=== PATIENT | female | born 1980 | race African-American/Black ===

== ENCOUNTER 2019-07-01 16:55 | Emergency (ER) | payer MEDICAID ==
--- NOTE | 2019-07-01 18:37 | RAD ---
PORTABLE CHEST ONE VIEW: 07/01/19 at 6:14 p.m. HISTORY: Pacemaker evaluation. FINDINGS: Comparison made with exam of 12/28/18. Left sided pacemaker device remains in place with an intact solitary lead with tip in the right ventr icle. The heart is enlarged. The lungs are well expanded without lobar consolidation, pneumothoraces, marcos pulmonary edema or pleural effusions. IMPRESSION: No acute process. POS: BEATRICE
[2019-07-01 19:18] LABS: #Basophils 0.1 thou/uL (0.0-0.2); #Eosinphils 0.1 thou/uL (0.0-0.7); #Lymphocytes 2.8 thou/uL (1.20-3.40); #Monocytes 0.8 thou/uL (0.11-0.59); %Eosinophils 1.5 % (0.0-10.0); %Lymphocytes 35.6 % (21.0-51.0); %Monocytes 10.4 % (0.0-10.0); %Neutrophils 51.6 % (42.0-75.0); Hemoglobin 11.3 g/dL (12.0-16.0); Mean Corpuscular HGB CONC 33.7 g/dL (32.0-36.0); Mean Corpuscular Hemoglobin 29.3 pg (27.0-31.0); Mean Corpuscular Volume 86.9 fL (78.0-98.0); Mean Platelet Volume 8.4 fL (7.4-10.4); Platelet Count 237 thou/uL (130-400); RBC Distribution Width 11.9 % (11.5-14.5); Red Blood Cell (RBC) Count 3.86 mill/uL (4.20-5.40); White Blood Cell (WBC) Count 7.8 thou/uL (4.8-10.8)
[2019-07-01 19:38] LABS: ALT (SGPT) 8 U/L (8-55); AST (SGOT) 9 U/L (5-34); Alkaline Phosphatase 88 U/L (40-150); Anion Gap 11 mmol/L (10-20); BUN (Urea Nitrogen) 12 mg/dL (7.0-18.7); Bilirubin, Total 0.4 mg/dL (0.2-1.2); CK (CPK) 90 U/L (29-168); Calc. Creatinine Clearance 0 mL/min (70-130); Calcium 8.9 mg/dL (7.8-10.44); Carbon Dioxide 25 mmol/L (22-29); Estimated GFR-MDRD 90; Globulin 3.3 g/dL (2.4-3.5); Glucose 79 mg/dL (70-105); Lipase 22 U/L (8-78); Protein, Total 7.3 g/dL (6.0-8.3)
[2019-07-01 19:40] LABS: Chloride 106 mmol/L (98-107); Potassium 3.1 mmol/L (3.5-5.1); Sodium 139 mmol/L (136-145)
[2019-07-01 19:41] LABS: BHCG - Serum Negative (NEGATIVE); Pregs Control Background? CLEAR/WHITE (CLR/WHITE); Pregs Control Bar Appear? YES (CONTROL BAR)
[2019-07-01] MEDS ORDERED: Potassium Chloride 20 MEQ TAB ONE (19:47)
== END 2019-07-01 21:57 | disposition short-term general hospital (02) ==
LOC: ERS 16:55
DX: T82.118A Breakdown (mechanical) of other cardiac electronic device, initial encounter (principal); E11.9 Type 2 diabetes mellitus without complications; I50.9 Heart failure, unspecified; Z79.4 Long term (current) use of insulin; Z79.899 Other long term (current) drug therapy
CPT/HCPCS: 36415; 71045; 80053; 82550; 83690; 83880; 84484; 84703; 85025; 93005

== ENCOUNTER 2020-04-28 16:52 | Inpatient (IN) | payer MEDICARE, OTHER ==
[~2020-04-28 16:52] MED LIST: Iopamidol-370 76% 500 ML 1 ML ONE
[2020-04-28 17:50] LABS: #Lymphocytes 1.6 thou/uL (1.20-3.40); #Monocytes 0.8 thou/uL (0.11-0.59); #Neutrophils 4.7 thou/uL (1.40-6.50); %Basophils 0.6 % (0.0-1.0); %Eosinophils 0.4 % (0.0-10.0); %Lymphocytes 22.1 % (21.0-51.0); %Monocytes 10.6 % (0.0-10.0); %Neutrophils 66.4 % (42.0-75.0); Hemoglobin 8.9 g/dL (12.0-16.0); Mean Corpuscular HGB CONC 29.1 g/dL (32.0-36.0); Mean Corpuscular Hemoglobin 20.5 pg (27.0-31.0); Mean Corpuscular Volume 70.5 fL (78.0-98.0); Mean Platelet Volume 10.3 fL (7.4-10.4); Platelet Count 293 thou/uL (130-400); RBC Distribution Width 18.4 % (11.5-14.5); Red Blood Cell (RBC) Count 4.35 mill/uL (4.20-5.40); White Blood Cell (WBC) Count 7.1 thou/uL (4.8-10.8)
[2020-04-28 18:07] LABS: Anisocytosis SLIGHT = 6-15 cells (100X) (0-5/hpf); MDiff Complete? YES; Ovalocytes SLIGHT = 2-5 cells (100X) (0-1/hpf); Poikilocytosis SLIGHT = 6-15 cells (100X) (0-5/hpf); Tear Drops SLIGHT = 2-5 cells (100X) (0-1/hpf)
[2020-04-28 18:09] LABS: ALT (SGPT) 23 U/L (8-55); AST (SGOT) 34 U/L (5-34); Albumin 3.3 g/dL (3.5-5.0); Alkaline Phosphatase 131 U/L (40-110); Anion Gap 15 mmol/L (10-20); BUN (Urea Nitrogen) 8 mg/dL (7.0-18.7); Bilirubin, Total 2.1 mg/dL (0.2-1.2); Calc. Creatinine Clearance 0 mL/min (70-130); Calcium 7.6 mg/dL (7.8-10.44); Carbon Dioxide 36 mmol/L (22-29); Chloride 97 mmol/L (98-107); Estimated GFR-MDRD 90; Globulin 3.4 g/dL (2.4-3.5); Glucose 93 mg/dL (70-105); Protein, Total 6.7 g/dL (6.0-8.3); Sodium 145 mmol/L (136-145)
[2020-04-28 18:13] LABS: BHCG - Serum Negative (NEGATIVE); Pregs Control Background? CLEAR/WHITE (CLR/WHITE); Pregs Control Bar Appear? YES (CONTROL BAR)
[2020-04-28 18:23] LABS: Potassium 2.8 mmol/L (3.5-5.1)
[2020-04-28 18:32] LABS: CKMB 1.4 ng/mL (0-6.6)
[2020-04-28] MEDS ORDERED: Furosemide 100 MG/10 ML VIAL ONE (18:32)
[2020-04-28] MEDS ORDERED: Potassium Chloride 20 MEQ TAB ONE (18:32)
--- NOTE | 2020-04-28 18:44 | CT ---
CT Brain WO Con: 04/28/2020 5:20 PM CLINICAL HISTORY: Found unresponsive; syncope. IMAGING TECHNIQUE: Multiple CT images were obtained of the brain without IV contrast. COMPARISON: CT the brain dated June 05, 2016 FINDINGS: BRAIN: Evidence of acute infarct: None. Evidence of chronic ischemic change:None. Evidence of intracranial hemorrhage: None. Evidence of midline shift: Third ventricle and septum pellucidum are midline. Ventricles: Normal. No hydrocephalus. SKULL: Intact. VISUALIZED PARANASAL SINUSES: Clear. MASTOID AIR CELLS: Clear. EXTRACRANIAL SOFT TISSUES: There is an enlarging suspected sebaceous cyst overlying the midline post erior occiput measuring 2.1 cm. IMPRESSION: No acute intracranial abnormality. Enlarging suspected sebaceous cyst of the occipital scalp
--- NOTE | 2020-04-28 19:54 | CT ---
CTA CHEST: Technique: Axial tomograms were obtained following a pulmonary angio protocol with multiplanar recons truction and 3D post processing. Indications: Tachycardia. Shortness of breath. FINDINGS: Pulmonary arteries show adequate enhancement. There is no evidence of pulmonary embolus. There is a moderate sized pericardial effusion. There is also cardiomegaly and vascular congestion. M ild interstitial congestion. No focal infiltrate or alveolar process. No effusion. No evidence of mediastinal adenopathy. Images through the upper abdomen shows small volume ascites around the liver and spleen. IMPRESSION: 1. Moderate sized pericardial effusion. Recommend cardiology consultation. 2. No evidence of pulmonary embolus. 3. Cardiomegaly with vascular congestion. 4. Small volume ascites noted in the upper abdomen. POS: AGW
[2020-04-28] MEDS ORDERED: Ondansetron PF 4 MG/2 ML Vial IVP PRN (20:13)
[2020-04-28] MEDS ORDERED: Promethazine HCl 12.5 MG in Sodium Chloride 0.9% 50 ML IVPB PRN (20:13)
[2020-04-28] MEDS ORDERED: Labetalol HCl 100 MG/20 ML VIAL SLOW IVP PRN (20:13)
[2020-04-28] MEDS ORDERED: Acetaminophen 325 MG TAB PO PRN (20:13)
[2020-04-28] MEDS ORDERED: Morphine 2 MG/ML SYRINGE SLOW IVP PRN (20:13)
[2020-04-28] MEDS ORDERED: Guaifenesin DM 100-10/5 ML UDCUP PO PRN (20:13)
[2020-04-28] MEDS ORDERED: cloNIDine 0.1 MG TAB PO PRN (20:13)
[2020-04-28] MEDS ORDERED: hydrALAZINE 20 MG/ML VIAL SLOW IVP PRN (20:13)
--- NOTE | 2020-04-28 21:33 | PDOC.HHP ---
Hospitalist HPI - History of Present Illness Syncope History of Present Illness: Patient is a 39 year old female with PMH VF arrest, CHF, anoxic brain injury who presents to ED after syncope today, she fainted upon rising from toilet, was unresponsive for a few minutes. She has CHF and a pacemaker, sees Dr Rinaldi. history of VF arrest as well as seizure. Reports dizziness x 1 week. In ED, K 2.8, given IV and PO replacement, hgb 8.9 which is close to chronic hgb. BNP 1500, TnI 0.22, CTA chest w/ moderate pericardial effusion, volume overload. Brain CT unremarkable. patient given ASA and to be admitted for further workup. She has history of anoxic brain injury and is poor historian. Hospitalist ROS - Review of Systems Constitutional: denies: fever, chills, sweats, weakness, malaise, other Eyes: denies: pain, vision change, conjunctivae inflammation, eyelid inflammation, redness, other ENT: denies: ear pain, ear discharge, nose pain, nose discharge, nose congestion , mouth pain, mouth swelling, throat pain, throat swelling, other Respiratory: denies: cough, dry, shortness of breath, hemoptysis, SOB with excertion, pleuritic pain, sputum, wheezing, other Cardiovascular: denies: chest pain, palpitations, orthopnea, paroxysmal noc. dyspnea, edema, light headedness, other Gastrointestinal: denies: nausea, vomiting, abdominal pain, diarrhea, constipation, melena, hematochezia, other Genitourinary: denies: dysuria, frequency, incontinence, hematuria, retention, other Musculoskeletal: denies: neck pain, shoulder pain, arm pain, back pain, hand pain, leg pain, foot pain, other Skin: denies: rash, lesions, silvestre, bruising, other Neurological: denies: weakness, numbness, incoordination, change in speech, confusion, seizures, other All other systems reviewed; all pertinent +/- noted in HPI/Subj - Medication Medications: lisinopril WedApr 28, 2020 17:05 BERNA Abbasi Shelley TABLET : Strength - 10 mg : ORAL Patient Dose: 1 tab(s) Oral once a day. carvedilol WedApr 28, 2020 17:05 BERNA Abbasi Shelley TABLET : Strength - 25 mg : ORAL Patient Dose: 6.25 mg Oral 2 times a day. sertraline WedApr 28, 2020 17:05 BERNA Abbasi Shelley TABLET : Strength - 25 mg : ORAL Patient Dose: 1 tab(s) Oral once a day. Lasix oral WedApr 28, 2020 17:06 BERNA Abbasi Shelley tablet : Strength - 20 mg : ORAL Patient Dose: 40 mg Oral 2 times a day. Hospitalist History - Past Medical History Other Medical History: chronic systolic CHF pacemaker VF arrest - Past Surgical History Other Surgical History: cholecystectomy C section - Family History Other Family History: CAD, DM - Social History Smoking Status: Never smoker Alcohol: reports: None Drugs: reports: none - Exam General Appearance: NAD, awake alert Eye: PERRL, anicteric sclera ENT: normocephalic atraumatic, no oropharyngeal lesions, moist mucosa Neck: supple, symmetric, no JVD, no thyromegaly, no lymphadenopathy, no carotid bruit Heart: RRR, no murmur, no gallops, no rubs, normal peripheral pulses Respiratory: CTAB, no wheezes, no rales, no ronchi, normal chest expansion, no tachypnea, normal percussion Gastrointestinal: soft, non-tender, non-distended, normal bowel sounds, no palpable masses, no hepatomegaly, no splenomegaly, no bruit Extremities: no cyanosis, no clubbing, no edema Skin: normal turgor, no lesions, no rashes Neurological: cranial nerve grossly intact, normal sensation to touch, no weakness, no focal deficits, no new deficit Musculoskeletal: normal tone, normal strength, no muscle wasting Psychiatric: normal affect, normal behavior, A&O x 3 Hospitalist Results - Labs Result Diagrams: 04/28/20 17:39 04/28/20 17:39 Lab results: WBC 7.1 thou/uL (4.8-10.8) 04/28/20 17:39 Hgb 8.9 g/dL (12.0-16.0) L 04/28/20 17:39 Hct 30.7 % (36.0-47.0) L 04/28/20 17:39 MCV 70.5 fL (78.0-98.0) L 04/28/20 17:39 Plt Count 293 thou/uL (130-400) 04/28/20 17:39 Neutrophils % 66.4 % (42.0-75.0) 04/28/20 17:39 Sodium 145 mmol/L (136-145) 04/28/20 17:39 Potassium 2.8 mmol/L (3.5-5.1) L* 04/28/20 17:39 Chloride 97 mmol/L (98-107) L 04/28/20 17:39 Carbon Dioxide 36 mmol/L (22-29) H 04/28/20 17:39 BUN 8 mg/dL (7.0-18.7) 04/28/20 17:39 Creatinine 0.85 mg/dL (0.6-1.1) 04/28/20 17:39 Glucose 93 mg/dL (70-105) 04/28/20 17:39 Calcium 7.6 mg/dL (7.8-10.44) L 04/28/20 17:39 Total Bilirubin 2.1 mg/dL (0.2-1.2) H 04/28/20 17:39 AST 34 U/L (5-34) 04/28/20 17:39 ALT 23 U/L (8-55) 04/28/20 17:39 Alkaline Phosphatase 131 U/L (40-110) H 04/28/20 17:39 CK-MB (CK-2) 1.4 ng/mL (0-6.6) 04/28/20 17:39 Troponin I 0.210 ng/mL (< 0.028) H 04/28/20 20:24 B-Natriuretic Peptide 1522.1 pg/mL (0-100) H 04/28/20 17:39 Serum Total Protein 6.7 g/dL (6.0-8.3) 04/28/20 17:39 Albumin 3.3 g/dL (3.5-5.0) L 04/28/20 17:39 - EKG Interpretation EKG: sinus, 98 BPM, IL 160, QTc 492 Hospitalist H&P A/P - Plan Plan: Patient is a 39 year old female with PMH VF arrest, CHF, anoxic brain injury who presents to ED after syncope today. # syncope # hypokalemia # prolonged QT # chronic systolic CHF # elevated troponin # history of VF arrest - given presenation of history of arrythmia, hypokalemia, syncope and lack of seizure-like movements, cardiac source of syncope most likely, patient with elevated troponin and very low K despite replacement at outside hospital and prolonged QT - admit to telemetry - replete K and Mg now empirically - trend BMP, Mg - consult Dr Rinaldi - trend troponin, continue ASA empiric # history of seizure - not consistent with seizure given troponin, electrolytes , description of events, however will monitor for anything that looks like seizure activity, continue home seizure meds once med rec complete # DM 2 - SSI # radiographic finding of pericardial effusion - presentation not consistent with tamponade, consult cardiology in AM # anemia - chronic, trend CBC, no clinical bleeding # DVT, GI ppx
[2020-04-28] MEDS ORDERED: Magnesium 2 GM/50 ML 2 GM in Premix Bag 1 BAG IVPB SCH (22:00)
[2020-04-28] MEDS ORDERED: levETIRAcetam 500 mg/5 ml Oral Solution PO SCH (22:00)
[2020-04-28 23:58] VITALS: BMI 49.4
[2020-04-29] MEDS: Famotidine 20 MG TAB PO SCH ×3 (00:47→20:57)
[2020-04-29 06:23] LABS: Anion Gap 16 mmol/L (10-20); BUN (Urea Nitrogen) 8 mg/dL (7.0-18.7); Calc. Creatinine Clearance 186 mL/min (70-130); Calcium 7.4 mg/dL (7.8-10.44); Carbon Dioxide 32 mmol/L (22-29); Chloride 97 mmol/L (98-107); Estimated GFR-MDRD 86; Glucose 117 mg/dL (70-105); Magnesium 1.4 mg/dL (1.6-2.6); Sodium 142 mmol/L (136-145)
[2020-04-29 06:26] LABS: Potassium 2.6 mmol/L (3.5-5.1); Troponin I 0.197 ng/mL (< 0.028)
[2020-04-29 06:36] LABS: #Eosinphils 0.1 thou/uL (0.0-0.7); #Lymphocytes 2.4 thou/uL (1.20-3.40); #Monocytes 0.9 thou/uL (0.11-0.59); #Neutrophils 3.1 thou/uL (1.40-6.50); %Basophils 0.7 % (0.0-1.0); %Eosinophils 1.8 % (0.0-10.0); %Lymphocytes 36.1 % (21.0-51.0); %Monocytes 14.2 % (0.0-10.0); %Neutrophils 47.2 % (42.0-75.0); Hemoglobin 8.3 g/dL (12.0-16.0); Mean Corpuscular Hemoglobin 20.2 pg (27.0-31.0); Mean Corpuscular Volume 69.8 fL (78.0-98.0); Mean Platelet Volume 10.9 fL (7.4-10.4); Platelet Count 274 thou/uL (130-400); RBC Distribution Width 18.5 % (11.5-14.5); Red Blood Cell (RBC) Count 4.13 mill/uL (4.20-5.40); White Blood Cell (WBC) Count 6.6 thou/uL (4.8-10.8)
[2020-04-29] MEDS ORDERED: NS 0.9% w/ 40 MEQ KCL 1,000 ML IV SCH (06:45)
[2020-04-29] MEDS ORDERED: Potassium Chloride 40 MEQ in Premix Bag 1 BAG IVPB SCH (08:30)
[2020-04-29] MEDS: Lisinopril 2.5 MG TAB PO SCH (09:40)
[2020-04-29] MEDS: levETIRAcetam 500 mg/5 ml Oral Solution PO SCH ×2 (09:40→20:57)
[2020-04-29] MEDS: Carvedilol 3.125 MG TAB PO SCH ×2 (09:40→17:40)
[2020-04-29] MEDS: Enoxaparin Sodium 40 MG/0.4 ML SYRINGE SC SCH (09:42)
[2020-04-29] MEDS: Aspirin 81 mg Enteric Coated Tablet PO SCH (09:42)
[2020-04-29] MEDS: Magnesium Sulfate 4 GM in Sodium Chloride 0.9% 250 ML 250 ML IVPB SCH ×2 (09:43→14:42)
[2020-04-29] MEDS: Potassium Chloride 20 MEQ in Premix Bag 1 BAG IVPB SCH ×2 (09:43→17:41)
[2020-04-29] MEDS: Polyethylene Glycol 3350 17 GM Packet PO SCH (09:44)
[2020-04-29 12:20] LABS: Troponin I 0.171 ng/mL (< 0.028)
[2020-04-29] MEDS ORDERED: Potassium Chloride 20 MEQ TAB PO SCH (13:30)
--- NOTE | 2020-04-29 13:53 | CON ---
DATE OF CONSULTATION: 04/29/2020 REASON FOR CONSULTATION: Syncope. PRIMARY INSPECTOR COLD WORKING: Abimael Rinaldi MD HISTORY OF PRESENT ILLNESS: Ms. Gómez is a very pleasant 39-year-old female, who comes to the hospital for syncopal spell. She states she was at the bathroom, and when she was about to stand up as she was done, she had a syncopal spell, just remembers standing up and then waking up on the floor. She was brought in. She was found to have low potassium, otherwise no other issues. So, Cardiology is being consulted for further evaluation and care. Ms. Gómez does have a history of VFib arrest that she has a cardiomyopathy, dilated cardiomyopathy in 2016. She had a VFib arrest from this and had an AICD placed. She has followed up since then and has been fairly moderate with her followup, missing probably half of them. She does take her medications. Every time when she has been asked about this, she states she is continuously on them. PAST MEDICAL HISTORY: 1. Nonischemic cardiomyopathy with cardiomyopathy. 2. Status post VFib arrest in 2016 with some level of anoxic brain injury. 3. AICD in place. PAST SURGICAL HISTORY: 1. Cholecystectomy. 2. . 3. AICD placement. OUTPATIENT MEDICATIONS: 1. Lisinopril 5 mg a day. 2. Carvedilol 6.25 b.i.d. 3. Furosemide 40 mg b.i.d. 4. Sertraline 25 mg a day. 5. Keppra. ALLERGIES: PENICILLIN AND LATEX. SOCIAL HISTORY: No alcohol, tobacco, or drugs. FAMILY HISTORY: Noncontributory. REVIEW OF SYSTEMS: A 12-point review of systems was done and was all negative unless stated in the History of Present Illness. PHYSICAL EXAMINATION: VITAL SIGNS: Temperature 97.5, pulse 94, respiratory rate 16, sat is 93% on room air, and blood pressure 120/79. GENERAL: Awake, alert, oriented x3. No distress. HEENT: Normocephalic, atraumatic. NECK: Supple. LUNGS: Clear. CARDIOVASCULAR: S1, S2. No S3 or S4. ABDOMEN: Soft. Positive bowel sounds. EXTREMITIES: 1+ edema. SKIN: Warm and dry. LABORATORY DATA: Laboratory work was reviewed, showed a CBC with white count of 7, hemoglobin of 8.9, hematocrit of 30, platelet count of 293, which is baseline. Sodium 142, potassium was very low at 2.6, BUN of 8, creatinine of 0.88, glucose of 117, calcium is low at 7.4, magnesium was low at 1.4. Troponin was 0.21, 0.19, and 0.17. BNP of 1522. CT of the brain was unremarkable. CT of the thorax showed no evidence of pulmonary embolism. There is a pericardial effusion and small volume ascites in the abdomen. ASSESSMENT: Include: 1. Syncope. 2. Profound hypokalemia, hypomagnesemia. 3. History of ventricular fibrillation arrest. 4. Status post automatic implantable cardioverter-defibrillator. 5. Dilated nonischemic cardiomyopathy. PLAN: 1. Interrogate ICD as high likelihood of arrhythmia given her electrolyte imbalance. 2. We will correct magnesium and then potassium. 3. She will need diuresis. 4. We will repeat echocardiogram to assess her pericardial effusion. Most likely, this is related to acute decompensated heart failure. Thank you for letting us to participate in the care of your patient. We will follow. Job ID: [id number]
--- NOTE | 2020-04-29 23:33 | PDOC.HOSPP ---
- Subjective Encounter Date: 04/29/20 Encounter Time: 12:30 Subjective: Patient seen and examined for Syncope. No new CP or SOB. No new complaints. No overnight events - Objective Vital Signs & Weight: Vital Signs (12 hours) Temp Pulse Resp BP Pulse Ox 04/29/20 17:00 150/94 H 04/29/20 11:55 97.5 F L 94 16 121/79 93 L Weight Weight 306 lb 6.4 oz I&O: 04/28/20 04/29/20 04/30/20 06:59 06:59 06:59 Intake Total 1770 Output Total 450 Balance 1320 Result Diagrams: 04/30/20 04:13 04/30/20 04:13 Additional Labs: Laboratory Tests 04/29/20 05:46 Potassium 2.6 L* Magnesium 1.4 L EKG Reviewed by me: Yes (Tele SR) Hospitalist ROS - Review of Systems Respiratory: denies: cough, dry, shortness of breath, hemoptysis, SOB with excertion, pleuritic pain, sputum, wheezing, other Cardiovascular: reports: paroxysmal noc. dyspnea, edema. denies: chest pain, palpitations, orthopnea, light headedness, other Gastrointestinal: denies: nausea, vomiting, abdominal pain, diarrhea, constipation, melena, hematochezia, other - Medication Medications: Active Medications Generic Name Dose Route Start Last Admin Trade Name Freq PRN Reason Stop Dose Admin Aspirin 81 mg 04/29/20 09:00 04/29/20 09:42 Ecotrin PO 81 mg DAILY [facility] Administration Carvedilol 3.125 mg 04/29/20 08:00 04/29/20 17:40 Coreg PO 3.125 mg BID-WM [facility] Administration Enoxaparin Sodium 40 mg 04/29/20 09:00 04/29/20 09:42 Lovenox SC 40 mg 0900 [facility] Administration Famotidine 20 mg 04/28/20 21:00 04/29/20 20:57 Pepcid PO 20 mg BID [facility] Administration Levetiracetam 1,000 mg 04/29/20 09:00 04/29/20 20:57 Keppra Oral Solution PO 1,000 mg BID [facility] Administration Lisinopril 1.25 mg 04/29/20 09:00 04/29/20 09:40 Zestril PO 1.25 mg DAILY [facility] Administration Polyethylene Glycol 17 gm 04/29/20 09:00 04/29/20 09:44 Miralax PO Not Given DAILY [facility] Sodium Chloride 10 ml 04/29/20 09:00 04/29/20 20:57 Flush - Normal Saline IVF 10 ml Q12HR [facility] Administration - Exam General Appearance: NAD Neck: supple, JVD Heart: RRR, no gallops Respiratory: no wheezes, normal chest expansion, rales, rhonchi Respiratory - other findings: dec AE at bases Gastrointestinal: soft, normal bowel sounds, no guarding, no rigidity Extremities: no cyanosis, no clubbing, 2+ LE edema Neurological: no new deficit Psychiatric: normal affect, A&O x 3 Hosp A/P - Plan DVT proph w/lovenox Acute on chronic systolic CHF/nonischemic CM Syncope - suspected Cardiogenic Severe hypokalemia Hypomagnesemia History of VF arrest seizure disorder DM [address] Chronic anemia prob due to nutrional def Morbid obesity BMI 49.1 Abn LFTs prob due to CHF PLAN: Replace Potassium and Magnesium Cont ACEI Cont Coreg Await Echo Cont Keppra Cardiac rehab AM labs Counselled on CHF
[2020-04-30 05:16] LABS: #Basophils 0.1 thou/uL (0.0-0.2); #Eosinphils 0.2 thou/uL (0.0-0.7); #Lymphocytes 2.2 thou/uL (1.20-3.40); #Neutrophils 4.6 thou/uL (1.40-6.50); %Basophils 0.8 % (0.0-1.0); %Eosinophils 1.9 % (0.0-10.0); %Lymphocytes 27.4 % (21.0-51.0); %Monocytes 12.3 % (0.0-10.0); %Neutrophils 57.6 % (42.0-75.0); Hemoglobin 8.7 g/dL (12.0-16.0); Mean Corpuscular HGB CONC 29.1 g/dL (32.0-36.0); Mean Corpuscular Hemoglobin 20.3 pg (27.0-31.0); Mean Corpuscular Volume 69.9 fL (78.0-98.0); Platelet Count 326 thou/uL (130-400); RBC Distribution Width 18.3 % (11.5-14.5); Red Blood Cell (RBC) Count 4.26 mill/uL (4.20-5.40)
[2020-04-30 05:24] LABS: Phosphorus 2.7 mg/dL (2.3-4.7)
[2020-04-30 05:28] LABS: Anion Gap 16 mmol/L (10-20); BUN (Urea Nitrogen) 10 mg/dL (7.0-18.7); Calc. Creatinine Clearance 161 mL/min (70-130); Calcium 7.8 mg/dL (7.8-10.44); Carbon Dioxide 34 mmol/L (22-29); Chloride 97 mmol/L (98-107); Estimated GFR-MDRD 73; Glucose 110 mg/dL (70-105); Potassium 3.7 mmol/L (3.5-5.1); Sodium 143 mmol/L (136-145)
[2020-04-30] MEDS: Enoxaparin Sodium 40 MG/0.4 ML SYRINGE SC SCH (08:57)
[2020-04-30] MEDS: levETIRAcetam 500 mg/5 ml Oral Solution PO SCH ×2 (08:57→21:25)
[2020-04-30] MEDS: Lisinopril 2.5 MG TAB PO SCH (08:57)
[2020-04-30] MEDS: Aspirin 81 mg Enteric Coated Tablet PO SCH (08:57)
[2020-04-30] MEDS: Carvedilol 3.125 MG TAB PO SCH ×2 (08:57→17:06)
[2020-04-30] MEDS: Polyethylene Glycol 3350 17 GM Packet PO SCH ×2 (08:58→09:10)
[2020-04-30] MEDS: Famotidine 20 MG TAB PO SCH ×2 (11:14→21:24)
[2020-04-30] MEDS ORDERED: Potassium Chloride 20 MEQ TAB PO SCH ×2 (11:30→12:00)
[2020-04-30] MEDS: Potassium Chloride 20 MEQ TAB PO SCH ×2 (12:05→17:06)
[2020-04-30] MEDS ORDERED: Furosemide 20 MG/2 ML VIAL SLOW IVP SCH (14:00)
--- NOTE | 2020-04-30 16:22 | PDOC.CPN ---
- Subjective Date: 04/30/20 Time: 16:20 Interval history: She is doing better. No more syncope. No lightheadedness. - Review of Systems General: denies: fever/chills, weight/appetite/sleep changes, night sweats, fatigue Respiratory: denies: cough, congestion, shortness of breath, exercise intolerance Cardiovascular: reports: edema. denies: chest pain, palpitation, paroxysmal nocturnal dyspnea, orthopnea Gastrointestinal: denies: nausea, vomiting, diarrhea, constipation, abd pain, GI bleeding Musculoskeletal: denies: pain, tenderness, stiffness, swelling, arthritis/ arthralgias - Objective Allergies/Adverse Reactions: Allergies Allergy/AdvReac Type Severity Reaction Status Date / Time latex Allergy Verified 04/28/20 22:48 Penicillins Allergy Verified 04/28/20 22:48 Visit Medications: Current Medications Acetaminophen (Tylenol) 650 mg PO Q4H PRN PRN Reason: Headache/Fever/Mild Pain (1-3) Albuterol/Ipratropium (Duoneb) 3 ml NEB [id number] PRN PRN Reason: SOB &/or Wheezing Aspirin (Ecotrin) 81 mg PO DAILY [facility] Last Admin: 04/30/20 08:57 Dose: 81 mg Carvedilol (Coreg) 3.125 mg PO BID-[facility] Last Admin: 04/30/20 08:57 Dose: 3.125 mg Clonidine (Catapres) 0.1 mg PO BID PRN PRN Reason: SBP > 160 use second Enoxaparin Sodium (Lovenox) 40 mg SC 0900 [facility] Last Admin: 04/30/20 08:57 Dose: 40 mg Famotidine (Pepcid) 20 mg PO BID [facility] Last Admin: 04/30/20 11:14 Dose: 20 mg Furosemide (Lasix) 20 mg SLOW IVP 0600,1400 [facility] Last Admin: 04/30/20 12:04 Dose: 20 mg Guaifenesin/Dextromethorphan (Robitussin Dm) 15 ml PO Q4H PRN PRN Reason: Cough Hydralazine HCl (Apresoline) 10 mg SLOW IVP Q6H PRN PRN Reason: SBP GREATER THAN 160 Promethazine HCl 12.5 mg/ (Sodium Chloride) 50.5 mls @ 202 mls/hr IVPB Q6H PRN PRN Reason: Nausea/vomiting use second Labetalol HCl (Normodyne) 20 mg SLOW IVP Q4H PRN PRN Reason: SBP > 160 use third Levetiracetam (Keppra Oral Solution) 1,000 mg PO BID [facility] Last Admin: 04/30/20 08:57 Dose: 1,000 mg Lisinopril (Zestril) 1.25 mg PO DAILY [facility] Last Admin: 04/30/20 08:57 Dose: 1.25 mg Morphine Sulfate (Morphine) 2 mg SLOW IVP Q4H PRN PRN Reason: severe pain 4-10 Ondansetron HCl (Zofran) 4 mg IVP Q6H PRN PRN Reason: Nausea/Vomiting use 1st Polyethylene Glycol (Miralax) 17 gm PO DAILY [facility] Last Admin: 04/30/20 09:10 Dose: Not Given Potassium Chloride (K-Dur) 40 meq PO TID-[facility] Last Admin: 04/30/20 12:05 Dose: Not Given Sodium Chloride (Flush - Normal Saline) 10 ml IVF Q12HR [facility] Last Admin: 04/30/20 08:58 Dose: 10 ml Sodium Chloride (Flush - Normal Saline) 10 ml IVF PRN PRN PRN Reason: Saline Flush Vital Signs & Weight: Vital Signs Temp Pulse Resp BP Pulse Ox 04/30/20 15:31 97.5 F L 93 15 125/75 92 L 04/30/20 11:07 99.6 F 107 H 22 H 155/109 H 94 L 04/30/20 08:57 118 H 04/30/20 08:36 94 L 04/30/20 06:58 98.1 F 118 H 10 L 164/109 H 94 L Weight 304 lb - Physical Exam General: alert & oriented x3 HEENT: mucus membranes moist Neck: supple neck Cardiac: regular rate and rhythm Lungs: normal breath sounds Neuro: grossly intact Abdomen: active bowel sounds Extremities: 2+ LE edema Skin: clear Musculoskeletal: no pain - Labs Result Diagrams: 04/30/20 04:13 04/30/20 04:13 Troponin/CKMB CK-MB (CK-2) 1.4 ng/mL (0-6.6) 04/28/20 17:39 Troponin I 0.171 ng/mL (< 0.028) H 04/29/20 11:35 - Telemetry Sinus rhythms and dysrhythmias: sinus rhythm - Assessment/Plan Assessment/Plan: 1. Syncope, likely orthostatic 2. Acute on chronic systolic heart failure 3. Non ischemic CM EF at 20-25% 4. Presence of an AICD. PLAN: - Continue IV diuresis. - No arrhytmias seen on interrogation of device. a lot of non sustained VCT 1 or 2 seconds worth, nothing that wopuld explain syncope. - He has elevated optivol pressure on device. Needs diuresis for 2 or 3 days. - Will follow.
[2020-05-01 04:59] LABS: #Eosinphils 0.1 thou/uL (0.0-0.7); #Lymphocytes 2.7 thou/uL (1.20-3.40); #Monocytes 1.1 thou/uL (0.11-0.59); #Neutrophils 5.1 thou/uL (1.40-6.50); %Basophils 0.4 % (0.0-1.0); %Eosinophils 1.4 % (0.0-10.0); %Lymphocytes 29.7 % (21.0-51.0); %Neutrophils 56.5 % (42.0-75.0); Hemoglobin 8.7 g/dL (12.0-16.0); Mean Corpuscular Hemoglobin 20.5 pg (27.0-31.0); Mean Corpuscular Volume 70.7 fL (78.0-98.0); Mean Platelet Volume 10.6 fL (7.4-10.4); Platelet Count 343 thou/uL (130-400); RBC Distribution Width 18.6 % (11.5-14.5); Red Blood Cell (RBC) Count 4.23 mill/uL (4.20-5.40); White Blood Cell (WBC) Count 9.1 thou/uL (4.8-10.8)
[2020-05-01 05:14] LABS: ALT (SGPT) 25 U/L (8-55); AST (SGOT) 31 U/L (5-34); Albumin 3.7 g/dL (3.5-5.0); Alkaline Phosphatase 150 U/L (40-110); Anion Gap 16 mmol/L (10-20); BUN (Urea Nitrogen) 16 mg/dL (7.0-18.7); Bilirubin, Total 3.3 mg/dL (0.2-1.2); Calc. Creatinine Clearance 135 mL/min (70-130); Calcium 8.1 mg/dL (7.8-10.44); Carbon Dioxide 30 mmol/L (22-29); Chloride 98 mmol/L (98-107); Estimated GFR-MDRD 60; Globulin 3.6 g/dL (2.4-3.5); Glucose 116 mg/dL (70-105); Magnesium 1.7 mg/dL (1.6-2.6); Potassium 4.2 mmol/L (3.5-5.1); Protein, Total 7.3 g/dL (6.0-8.3); Sodium 140 mmol/L (136-145)
[2020-05-01] MEDS ORDERED: Furosemide 40 MG/4 ML VIAL SLOW IVP SCH (06:00)
[2020-05-01] MEDS: Lisinopril 2.5 MG TAB PO SCH (09:08)
[2020-05-01] MEDS: Potassium Chloride 20 MEQ TAB PO SCH ×2 (09:08→16:37)
[2020-05-01] MEDS: Famotidine 20 MG TAB PO SCH ×2 (09:09→21:09)
[2020-05-01] MEDS: Enoxaparin Sodium 40 MG/0.4 ML SYRINGE SC SCH (09:09)
[2020-05-01] MEDS: Carvedilol 3.125 MG TAB PO SCH ×2 (09:09→16:38)
[2020-05-01] MEDS: Aspirin 81 mg Enteric Coated Tablet PO SCH (09:09)
[2020-05-01] MEDS: levETIRAcetam 500 mg/5 ml Oral Solution PO SCH ×2 (09:09→21:10)
[2020-05-01] MEDS: Polyethylene Glycol 3350 17 GM Packet PO SCH (09:11)
[2020-05-01] MEDS ORDERED: Magnesium Sulfate 4 GM in Sodium Chloride 0.9% 250 ML 250 ML IVPB SCH (09:30)
--- NOTE | 2020-05-01 12:34 | PDOC.CPN ---
- Subjective Date: 05/01/20 Time: 12:34 Interval history: Doing better. No angina. no syncope. - Review of Systems General: denies: fever/chills, weight/appetite/sleep changes, night sweats, fatigue Respiratory: denies: cough, congestion, shortness of breath, exercise intolerance Cardiovascular: denies: chest pain, palpitation, edema, paroxysmal nocturnal dyspnea, orthopnea Gastrointestinal: denies: nausea, vomiting, diarrhea, constipation, abd pain, GI bleeding Musculoskeletal: denies: pain, tenderness, stiffness, swelling, arthritis/ arthralgias Neurological: denies: numbness, syncope, seizure, weakness - Objective Allergies/Adverse Reactions: Allergies Allergy/AdvReac Type Severity Reaction Status Date / Time latex Allergy Verified 04/28/20 22:48 Penicillins Allergy Verified 04/28/20 22:48 Visit Medications: Current Medications Acetaminophen (Tylenol) 650 mg PO Q4H PRN PRN Reason: Headache/Fever/Mild Pain (1-3) Albuterol/Ipratropium (Duoneb) 3 ml NEB [id number] PRN PRN Reason: SOB &/or Wheezing Aspirin (Ecotrin) 81 mg PO DAILY [facility] Last Admin: 05/01/20 09:09 Dose: 81 mg Carvedilol (Coreg) 3.125 mg PO BID-[facility] Last Admin: 05/01/20 09:09 Dose: 3.125 mg Clonidine (Catapres) 0.1 mg PO BID PRN PRN Reason: SBP > 160 use second Enoxaparin Sodium (Lovenox) 40 mg SC 0900 [facility] Last Admin: 05/01/20 09:09 Dose: 40 mg Famotidine (Pepcid) 20 mg PO BID [facility] Last Admin: 05/01/20 09:09 Dose: 20 mg Furosemide (Lasix) 40 mg PO 0900,1400 [facility] Guaifenesin/Dextromethorphan (Robitussin Dm) 15 ml PO Q4H PRN PRN Reason: Cough Hydralazine HCl (Apresoline) 10 mg SLOW IVP Q6H PRN PRN Reason: SBP GREATER THAN 160 Promethazine HCl 12.5 mg/ (Sodium Chloride) 50.5 mls @ 202 mls/hr IVPB Q6H PRN PRN Reason: Nausea/vomiting use second Labetalol HCl (Normodyne) 20 mg SLOW IVP Q4H PRN PRN Reason: SBP > 160 use third Levetiracetam (Keppra Oral Solution) 1,000 mg PO BID [facility] Last Admin: 05/01/20 09:09 Dose: 1,000 mg Lisinopril (Zestril) 1.25 mg PO DAILY [facility] Last Admin: 05/01/20 09:08 Dose: 1.25 mg Morphine Sulfate (Morphine) 2 mg SLOW IVP Q4H PRN PRN Reason: severe pain 4-10 Ondansetron HCl (Zofran) 4 mg IVP Q6H PRN PRN Reason: Nausea/Vomiting use 1st Polyethylene Glycol (Miralax) 17 gm PO DAILY [facility] Last Admin: 05/01/20 09:11 Dose: Not Given Potassium Chloride (K-Dur) 40 meq PO BID-[facility] Sodium Chloride (Flush - Normal Saline) 10 ml IVF Q12HR [facility] Last Admin: 05/01/20 09:10 Dose: 10 ml Sodium Chloride (Flush - Normal Saline) 10 ml IVF PRN PRN PRN Reason: Saline Flush Vital Signs & Weight: Vital Signs Temp Pulse Pulse Pulse Resp BP BP 05/01/20 12:02 98.2 F 97 18 135/89 05/01/20 09:20 118 H 119 H 144/75 H 05/01/20 07:42 05/01/20 07:23 97.7 F 108 H 18 135/104 H 05/01/20 04:00 99.2 F 114 H 18 158/74 H Pulse Ox Pulse Ox 05/01/20 12:02 96 05/01/20 09:20 94 L 05/01/20 07:42 96 05/01/20 07:23 97 05/01/20 04:00 96 Weight 306 lb 12.8 oz - Physical Exam General: alert & oriented x3 HEENT: mucus membranes moist Neck: supple neck Cardiac: regular rate and rhythm Lungs: normal breath sounds Neuro: grossly intact Abdomen: active bowel sounds Extremities: no edema Skin: clear Musculoskeletal: no pain - Labs Result Diagrams: 05/01/20 04:09 05/01/20 04:09 Troponin/CKMB CK-MB (CK-2) 1.4 ng/mL (0-6.6) 04/28/20 17:39 Troponin I 0.171 ng/mL (< 0.028) H 04/29/20 11:35 - Telemetry Sinus rhythms and dysrhythmias: sinus rhythm - Assessment/Plan Assessment/Plan: 1. Syncope, likely orthostatic 2. Acute on chronic systolic heart failure 3. Non ischemic CM EF at 20-25% 4. Presence of an AICD. PLAN: - Switch to PO diuresis. - Continue other meds. - Cannot tolerate many CHF meds due to orthostatic hypotension and borderline low BP. - May discharge home from cardiac perspective at any time.
--- NOTE | 2020-05-01 13:00 | PDOC.HOSPP ---
- Subjective Encounter Date: 04/30/20 Encounter Time: 15:00 Subjective: Patient seen and examined for CHF/Syncope. SOB on mild exertion. No new complaints. No overnight events - Objective Vital Signs & Weight: Vital Signs (12 hours) Temp Pulse Pulse Pulse Resp BP BP 05/01/20 12:02 98.2 F 97 18 135/89 05/01/20 09:20 118 H 119 H 144/75 H 05/01/20 07:42 05/01/20 07:23 97.7 F 108 H 18 135/104 H 05/01/20 04:00 99.2 F 114 H 18 158/74 H Pulse Ox Pulse Ox 05/01/20 12:02 96 05/01/20 09:20 94 L 05/01/20 07:42 96 05/01/20 07:23 97 05/01/20 04:00 96 Weight Weight 306 lb 12.8 oz I&O: 04/30/20 05/01/20 05/02/20 06:59 06:59 06:59 Intake Total 1970 1480 Output Total 1000 Balance 970 1480 Result Diagrams: 05/01/20 04:09 05/01/20 04:09 EKG Reviewed by me: Yes (Tele ST) Hospitalist ROS - Review of Systems Respiratory: reports: SOB with excertion. denies: cough, dry, shortness of breath, hemoptysis, pleuritic pain, sputum, wheezing, other Cardiovascular: denies: chest pain, palpitations, orthopnea, paroxysmal noc. dyspnea, edema, light headedness, other Gastrointestinal: denies: nausea, vomiting, abdominal pain, diarrhea, constipation, melena, hematochezia, other - Medication Medications: Active Medications Generic Name Dose Route Start Last Admin Trade Name Freq PRN Reason Stop Dose Admin Aspirin 81 mg 04/29/20 09:00 05/01/20 09:09 Ecotrin PO 81 mg DAILY EFREM Administration Carvedilol 3.125 mg 04/29/20 08:00 05/01/20 09:09 Coreg PO 3.125 mg BID-WM EFREM Administration Enoxaparin Sodium 40 mg 04/29/20 09:00 05/01/20 09:09 Lovenox SC 40 mg 0900 EFREM Administration Famotidine 20 mg 04/28/20 21:00 05/01/20 09:09 Pepcid PO 20 mg BID EFREM Administration Levetiracetam 1,000 mg 04/29/20 09:00 05/01/20 09:09 Keppra Oral Solution PO 1,000 mg BID EFREM Administration Lisinopril 1.25 mg 04/29/20 09:00 05/01/20 09:08 Zestril PO 1.25 mg DAILY EFREM Administration Polyethylene Glycol 17 gm 04/29/20 09:00 05/01/20 09:11 Miralax PO Not Given DAILY EFREM Sodium Chloride 10 ml 04/29/20 09:00 05/01/20 09:10 Flush - Normal Saline IVF 10 ml Q12HR EFREM Administration - Exam General Appearance: NAD Heart: RRR, no gallops Respiratory: no rales, no ronchi Gastrointestinal: soft, non-tender, normal bowel sounds Extremities: 2+ LE edema Hosp A/P - Plan DVT proph w/SCDs Acute on chronic systolic CHF/nonischemic CM Syncope - suspected Cardiogenic Severe hypokalemia Hypomagnesemia History of VF arrest seizure disorder DM [address] Chronic anemia prob due to nutrional def Morbid obesity BMI 49.1 Abn LFTs prob due to CHF PLAN: IV Lasix Cont ACEI Cont Coreg Echo pending Cont Keppra Cardiac rehab AM labs including LFTs Counselled on CHF
[2020-05-01] MEDS: Furosemide 40 MG TAB PO SCH (13:55)
--- NOTE | 2020-05-01 22:18 | PDOC.HOSPP ---
- Subjective Encounter Date: 05/01/20 Encounter Time: 13:00 Subjective: Patient seen and examined for CHF/Syncope. No CP/SOB. No new complaints. No overnight events - Objective Vital Signs & Weight: Vital Signs (12 hours) Temp Pulse Resp BP Pulse Ox 05/01/20 19:30 98.5 F 99 16 121/95 H 94 L 05/01/20 15:30 98.7 F 86 16 111/88 96 05/01/20 12:02 98.2 F 97 18 135/89 96 Weight Weight 306 lb 12.8 oz I&O: 04/30/20 05/01/20 05/02/20 06:59 06:59 06:59 Intake Total 1970 1480 1200 Output Total 1000 800 Balance 970 1480 400 Result Diagrams: 05/01/20 04:09 05/01/20 04:09 EKG Reviewed by me: Yes (Tele SR) Hospitalist ROS - Review of Systems Respiratory: reports: SOB with excertion. denies: cough, dry, shortness of breath, hemoptysis, pleuritic pain, sputum, wheezing, other Cardiovascular: denies: chest pain, palpitations, orthopnea, paroxysmal noc. dyspnea, edema, light headedness, other - Medication Medications: Active Medications Generic Name Dose Route Start Last Admin Trade Name Freq PRN Reason Stop Dose Admin Aspirin 81 mg 04/29/20 09:00 05/01/20 09:09 Ecotrin PO 81 mg DAILY EFREM Administration Carvedilol 3.125 mg 04/29/20 08:00 05/01/20 16:38 Coreg PO 3.125 mg BID-WM EFREM Administration Enoxaparin Sodium 40 mg 04/29/20 09:00 05/01/20 09:09 Lovenox SC 40 mg 0900 EFREM Administration Famotidine 20 mg 04/28/20 21:00 05/01/20 21:09 Pepcid PO 20 mg BID EFREM Administration Furosemide 40 mg 05/01/20 14:00 05/01/20 13:55 Lasix PO 40 mg 0900,1400 EFREM Administration Levetiracetam 1,000 mg 04/29/20 09:00 05/01/20 21:10 Keppra Oral Solution PO 1,000 mg BID EFREM Administration Lisinopril 1.25 mg 04/29/20 09:00 05/01/20 09:08 Zestril PO 1.25 mg DAILY EFREM Administration Polyethylene Glycol 17 gm 04/29/20 09:00 05/01/20 09:11 Miralax PO Not Given DAILY EFREM Potassium Chloride 40 meq 05/01/20 17:00 05/01/20 16:37 K-Dur PO 40 meq BID-WM EFREM Administration Sodium Chloride 10 ml 04/29/20 09:00 05/01/20 21:10 Flush - Normal Saline IVF 10 ml Q12HR EFREM Administration - Exam General Appearance: NAD Neck: supple Heart: RRR, no gallops Respiratory: no wheezes, no rales Respiratory - other findings: dec AE at bases Gastrointestinal: soft, no guarding, no rigidity Extremities: no cyanosis, 1+ LE edema Psychiatric: normal affect, A&O x 3 Hosp A/P - Plan DVT proph w/SCDs Acute on chronic systolic CHF/nonischemic CM Syncope - suspected Cardiogenic Severe hypokalemia Hypomagnesemia History of VF arrest seizure disorder DM [address] Chronic anemia prob due to nutrional def Morbid obesity BMI 49.1 Abn LFTs prob due to CHF PLAN: Lasix changed to PO Cont low dose ACEI Cont Coreg Await Echo Replace Magnesium Cont Keppra and other meds as above AM labs
[2020-05-02 05:25] LABS: ALT (SGPT) 28 U/L (8-55); AST (SGOT) 32 U/L (5-34); Albumin 3.6 g/dL (3.5-5.0); Alkaline Phosphatase 160 U/L (40-110); Anion Gap 13 mmol/L (10-20); BUN (Urea Nitrogen) 21 mg/dL (7.0-18.7); Bilirubin, Total 3.2 mg/dL (0.2-1.2); Calc. Creatinine Clearance 144 mL/min (70-130); Calcium 8.3 mg/dL (7.8-10.44); Carbon Dioxide 30 mmol/L (22-29); Chloride 100 mmol/L (98-107); Estimated GFR-MDRD 64; Globulin 3.7 g/dL (2.4-3.5); Glucose 126 mg/dL (70-105); Potassium 4.1 mmol/L (3.5-5.1); Protein, Total 7.3 g/dL (6.0-8.3); Sodium 139 mmol/L (136-145)
[2020-05-02] MEDS: levETIRAcetam 500 mg/5 ml Oral Solution PO SCH (08:12)
[2020-05-02] MEDS: Aspirin 81 mg Enteric Coated Tablet PO SCH (08:12)
[2020-05-02] MEDS: Lisinopril 2.5 MG TAB PO SCH (08:12)
[2020-05-02] MEDS: Furosemide 40 MG TAB PO SCH (08:13)
[2020-05-02] MEDS: Famotidine 20 MG TAB PO SCH (08:13)
[2020-05-02] MEDS: Potassium Chloride 20 MEQ TAB PO SCH (08:13)
[2020-05-02] MEDS: Enoxaparin Sodium 40 MG/0.4 ML SYRINGE SC SCH (08:13)
[2020-05-02] MEDS: Polyethylene Glycol 3350 17 GM Packet PO SCH (08:13)
[2020-05-02] MEDS: Carvedilol 3.125 MG TAB PO SCH (08:13)
[2020-05-02 12:04] VITALS: BP 166/89; TEMP 97.5
--- NOTE | 2020-05-02 18:06 | DIS ---
DATE OF ADMISSION: 04/28/2020 DATE OF DISCHARGE: 05/02/2020 DISCHARGE DISPOSITION: Home. FOLLOWUP: 1. Follow up with primary care physician at [facility] in 1 week. 2. Follow up with Cardiology, Dr. Rinaldi in 2 weeks. 3. Heart failure Clinic has been scheduled. 4. Complete metabolic profile after 1 week is recommended. Primary care physician advised to follow. The patient was extensively counseled on congestive heart failure. She was advised to restrict of fluids and to monitor her weight on a daily basis. The patient was seen and examined on the day of discharge. Denies any chest discomfort or shortness of breath. BRIEF HOSPITAL COURSE: The patient is a 39-year-old female, who presented to the emergency room with a syncopal episode. In the emergency room, her potassium was 2.8 with hemoglobin of 8.9. BNP was 1500 with a troponin of 0.22. CT scan of the chest was consistent with moderate pericardial effusion. The patient also reported that she has been dizzy almost for a week. The patient was evaluated by Cardiology. The symptoms improved with gentle diuresis. She has been cleared by Cardiology for discharge. FINAL DIAGNOSES: 1. Acute on chronic systolic heart failure exacerbation. 2. Nonischemic cardiomyopathy. 3. Syncope probably due to orthostatic hypotension. 4. Severe hypokalemia, replaced. 5. Hypomagnesemia. 6. History of ventricular fibrillation arrest. 7. Seizure disorder. 8. Diabetes mellitus type 2. 9. Pericardial effusion on CT. Echocardiogram showed moderate right-sided pericardial effusion without any tamponade. 10. Chronic anemia probably due to nutritional deficiency. 11. Morbid obesity with a BMI of 49.1. 12. Abnormal LFTs probably due to congestive heart failure. 13. Moderate tricuspid regurgitation. 14. The patient understands the above plan of care. 15. Echocardiogram showed ejection fraction 20% to 25% with grade 1/3 diastolic dysfunction, moderate tricuspid regurgitation, moderate-sized pericardial effusion. Time coordinating the discharge of this patient was 34 minutes. The patient was again extensively counseled on fluid restriction. Job ID: [id number]
--- NOTE | 2020-05-03 07:49 | PQF ---
LUNA BENAVIDES MALIK MD [id number] CLINICAL DOCUMENTATION CLARIFICATION FORM: POST DISCHARGE Addendum to original discharge summary date: ____ Late entry note date: __ DATE:05/03/2020 ATTN: Chapin Gutierrez Please exercise your independent, professional judgment in responding to the clarification form. Clinical indicators are provided on the bottom of this form for your review Please check appropriate box(s): AMI TYPE: [ ] NSTEMI (NH type I) [x] NSTEMI due to Demand Ischemia (AMI Type II) [ x ] Demand Ischemia without NH [ ] STEMI (please also specify site and arterysee below) If STEMI, SITE:[ ] Anterior [ ] Apical [ ] Lateral [ ] Inferior [ ] Posterior [ ] Q Wave [ ] Septal [ ] Unable to Determine [ ] Acute Coronary Syndrome (ACS) without Acute NH meaning Unstable Angina [ ] Other [ ] Other diagnosis [ ] Unable to determine In addition, please specify: Present on Admission (POA): [x ] Yes [ ] No [ ] Unable to determine CLINICAL INDICATORS - SIGNS / SYMPTOMS / LABS Laboratory 04/28 CK-MB 1.4, troponin I 0.221; 0.210; 0.197, BNP 1522.1 Vital signs 04/28 BP 141/707, Pulse 99, Resp 20 Temp 98.8 ED notes p2 04/28 Syncopal episode, elevated troponin H&P p3 04/28 Dr Figueroa Given hx of arrythmia, hypokalemia, syncope and lack of seizure-like movement,cardiac source of syncope likely, pt with elevated troponin Discharge summary p1 05/02 Dr Anthony Acute on chronic heart failure exacerbation RISKS: H&P p2 04/28 Hx of VF arrest H&P p3 04/28 Hypokalemia H&P p3 04/28 CHF H&P p3 04/28 Prolonged QT H&P p3 04/28 DM H&P p3 04/28 Pericardial effusion Consult p1 04/29 Cardiomyopathy Consult p1 04/29 AICD placed PN 04/29 Morbid obesity TREATMENTS: JAN 04 IV Lasix 20 mg JAN 04 Catapres 0.1 mg oral JAN 04 Aspirin 81 mg oral JAN 04 Coreg 3.125 mg oral JAN 04 IVF NS 1L JAN 04 Kdur 40 meq oral Cardiology consul 04/29 Abimael Cortez (This form is maintained as a part of the permanent medical record) 2014 [employer], [email or web address]. All Rights Reserved [email or web address]
== END 2020-05-02 12:30 | disposition home or self-care (01) | DRG 291 ==
LOC: ERS 16:52 → 2NO 22:30
PROVIDERS: ADMIT Internal Medicine; ATTEND Internal Medicine
PROC: 4B02XTZ Measurement of Cardiac Defibrillator, External Approach (ICD-10-PCS; principal; 2020-04-29)
DX: I11.0 Hypertensive heart disease with heart failure (principal); O90.3 Peripartum cardiomyopathy; Z68.42 Body mass index [BMI] 45.0-49.9, adult; I31.3 Pericardial effusion (noninflammatory); I24.8 Other forms of acute ischemic heart disease; I50.23 Acute on chronic systolic (congestive) heart failure; I95.1 Orthostatic hypotension; E87.6 Hypokalemia; E83.42 Hypomagnesemia; G40.909 Epilepsy, unspecified, not intractable, without status epilepticus; E11.9 Type 2 diabetes mellitus without complications; D53.9 Nutritional anemia, unspecified; E66.01 Morbid (severe) obesity due to excess calories; I07.1 Rheumatic tricuspid insufficiency; I45.81 Long QT syndrome; I42.0 Dilated cardiomyopathy; Z95.810 Presence of automatic (implantable) cardiac defibrillator; Z88.0 Allergy status to penicillin; Z91.040 Latex allergy status; Z79.899 Other long term (current) drug therapy; Z90.49 Acquired absence of other specified parts of digestive tract
CPT/HCPCS: 36415; 70450; 71275; 80048; 80053; 82553; 83735; 83880; 84100; 84484; 84703; 85025; 93005; 93306; 93798; 96374; J1650; J1940; J3475; J3480; J7050; Q9967

== ENCOUNTER 2020-10-21 13:31 | Inpatient (IN) | payer MEDICARE, MEDICAID ==
[2020-10-21] MEDS ORDERED: Cefepime 2 GM VIAL ONE (14:39)
[2020-10-21 15:03] LABS: Hemoglobin 12.9 g/dL (12.0-16.0); Mean Corpuscular Hemoglobin 29.9 pg (27.0-31.0); Mean Corpuscular Volume 96.4 fL (78.0-98.0); Platelet Count 145 thou/uL (130-400); RBC Distribution Width 12.8 % (11.5-14.5); Red Blood Cell (RBC) Count 4.31 mill/uL (4.20-5.40); White Blood Cell (WBC) Count 21.4 thou/uL (4.8-10.8)
[2020-10-21 15:09] LABS: INR-International Normal Ratio 1.2; Prothrombin Time 15.5 sec (12.0-14.7)
[2020-10-21 15:11] LABS: PTT 21.8 sec (22.9-36.1)
[2020-10-21 15:18] LABS: ALT (SGPT) 14 U/L (8-55); AST (SGOT) 12 U/L (5-34); Albumin 3.9 g/dL (3.5-5.0); Alkaline Phosphatase 135 U/L (40-110); Anion Gap 27 mmol/L (10-20); BUN (Urea Nitrogen) 64 mg/dL (7.0-18.7); Bilirubin, Total 0.4 mg/dL (0.2-1.2); CK (CPK) 218 U/L (29-168); Calc. Creatinine Clearance 0 mL/min (70-130); Calcium 8.7 mg/dL (7.8-10.44); Carbon Dioxide 18 mmol/L (22-29); Chloride 113 mmol/L (98-107); Globulin 4.4 g/dL (2.4-3.5); Magnesium 3.2 mg/dL (1.6-2.6); Potassium 4.9 mmol/L (3.5-5.1); Protein, Total 8.3 g/dL (6.0-8.3); Sodium 153 mmol/L (136-145)
[2020-10-21 15:20] LABS: Band 1 % (5-11); Elliptocytes SLIGHT = 2-5 cells (100X) (0-1/hpf); Hypochromia SLIGHT = 6-15 cells (100X) (0-5/hpf); Large Platelets SLIGHT; Lymphocytes 9 % (21-51); MDiff Complete? YES; Monocytes 5 % (0-10); Neutrophil 84 % (42-75); Platelet Morphology Comment Appears Adequate
[2020-10-21 15:25] LABS: Glucose 1143 mg/dL (70-105)
[2020-10-21 15:34] LABS: BHCG - Serum Negative (NEGATIVE); Pregs Control Background? CLEAR/WHITE (CLR/WHITE); Pregs Control Bar Appear? YES (CONTROL BAR)
--- NOTE | 2020-10-21 15:34 | RAD ---
XR Chest 1 View Portable History: Weakness and dizziness Comparison: Radiograph April 20, 2020 Findings: Heart size is enlarged. Single lead defibrillator tip projects over the right ventricle. No pneumothorax. No confluent pulmonary edema. Impression: Mild cardiomegaly without confluent pulmonary edema.
[2020-10-21 15:37] LABS: Thyroid Stimulating Hormone 0.4057 uIU/mL (0.35-4.94)
[2020-10-21 15:42] LABS: CKMB 0.9 ng/mL (0-6.6)
[2020-10-21 15:59] LABS: Bilirubin Negative (Negative); Blood, Urine 3+ (Negative); Clarity Turbid (Clear); Glucose, Urine (Dipstick) Greater than 1000 mg/dL (Negative); Ketone, Urine 10 mg/dL (Negative); Leukocyte 75 Leu/uL (Negative); Nitrite Negative (Negative); Protein, Urine (Dipstick) 50 mg/dL (Neg-Trace); RBC/HPF Greater than 50 HPF (0-3); Squamous Epithelial 0-3 HPF (0-3); Urobilinogen Normal mg/dL (Less than 2); WBC/HPF 21-50 HPF (0-3)
[2020-10-21 16:07] LABS: Bacteria/HPF 1+ HPF (None Seen); Yeast-Budding 1+ HPF (None Seen)
[2020-10-21] MEDS ORDERED: Insulin Regular 300 UNITS/3 ML VIAL ONE (16:39)
[2020-10-21] MEDS ORDERED: INSULIN REGULAR IN 0.9 % NACL 100 UNIT/100 ML BAG ONE (16:40)
[2020-10-21 16:48] LABS: Base Excess-Venous -6.5 mmol/L (-2.0 to 3.0); Bicarbonate (HCO3v) 20.4 mmol/L (22.0-28.0); CO2 Tension (PvCO2) 44.6 mmHg (40.0-50.0); Calcium, Ionized 1.03 mmol/L (1.15-1.33); Chloride 126 mmol/L (98-107); Hemoglobin - Calc 14.4 g/dL (12.0-16.0); Potassium 5.2 mmol/L (3.5-5.1); Sodium 155 mmol/L (138-145); T. Carbon Dioxide 21.8 mmol/L (22.0-28.0)
--- NOTE | 2020-10-21 16:50 | PDOC.HHP ---
Hospitalist HPI - History of Present Illness Generalized weakness History of Present Illness: History of present illness Patient came to emergency room with a complaint of generalized weakness and dizziness, patient has history of chronic systolic heart failure, when she called paramedics at that time her blood pressure was 52/38 at her home, patient was given 1 L of IV fluid and after that her blood pressure improved, after coming to emergency room she was given another liter of fluid and her blood p ressure improved, patient was found with the severe hyperglycemia, she denies any diabetes history, she denies any fever or chills, no nausea vomiting diarrhea, denies any COVID-19 exposure, denies any UTI symptoms, on admission her glucose was 1143, her creatinine was elevated to 3.58, she was appeared significantly dehydrated, patient also had leukocytosis, she also had elevated serum ketones in her urine analysis was suspicious for UTI, ED Course: Paramedics gave her 1 L of IV fluid, in the emergency room patient is receiving second liter bolus fluid, She was given cefepime and insulin drip was started. VITAL SIGNS WedOct 21, 2020 13:43 BERNA Arredondo Lacee BP: 90/72, MAP: 78, Pulse: 126, Resp: 26, Temp: 98.6 (Oral), Pain: 0, O2 sat: 95 on (Room Air), Time: 10/21/2020 13:43. VITAL SIGNS WedOct 21, 2020 14:42 BERNA Maharaj Tram BP: 121/86, MAP: 97, Pulse: 117, Resp: 22, Temp: 97.7 (Oral), Pain: 0, O2 sat: 100 on (Room Air), Time: 10/21/2020 14:42. VITAL SIGNS WedOct 21, 2020 15:18 BERNA Maharaj Tram BP: 100/68, MAP: 78, Pulse: 115, Resp: 26, Temp: 98.4 (Oral), Pain: 0, O2 sat: 98 on (Room Air), Time: 10/21/2020 15:18. VITAL SIGNS WedOct 21, 2020 16:12 BERNA Maharaj Tram BP: 95/73, MAP: 80, Pulse: 111, Resp: 16, Temp: 98.0 (Oral), Pain: 0, O2 sat: Hospitalist ROS - Review of Systems Constitutional: reports: weakness, malaise. denies: fever, chills, sweats, other ENT: denies: ear pain, ear discharge, nose pain, nose discharge, nose congestion, mouth pain, mouth swelling, throat pain, throat swelling, other Respiratory: denies: cough, dry, shortness of breath, hemoptysis, SOB with excertion, pleuritic pain, sputum, wheezing, other Cardiovascular: denies: chest pain, palpitations, orthopnea, paroxysmal noc. dyspnea, edema, light headedness, other Gastrointestinal: denies: nausea, vomiting, abdominal pain, diarrhea, constipation, melena, hematochezia, other Genitourinary: denies: dysuria, frequency, incontinence, hematuria, retention, other Musculoskeletal: denies: neck pain, shoulder pain, arm pain, back pain, hand pain, leg pain, foot pain, other - Medication Medications: Allergies latex Allergy (Verified 04/28/20 22:48) Penicillins Allergy (Verified 04/28/20 22:48) Medication Instructions Recorded Confirmed Type Carvedilol 6.25 mg PO BID 04/29/20 04/29/20 History Furosemide 40 mg PO BID 04/29/20 04/29/20 History Lisinopril [Zestril] 5 mg PO DAILY 04/29/20 04/29/20 History Sertraline HCl [Zoloft] 25 mg PO DAILY 04/29/20 04/29/20 History Magnesium Chloride [Slow-Mag] 64 mg PO BID #60 tab 05/02/20 Rx Hospitalist History - Past Medical History Other Medical History: Chronic systolic heart failure Hypertension History of ventricular fibrillation requiring AICD Diabetes type 2 - Past Surgical History Other Surgical History: AICD/pacemaker History of PEG tube placement and removal x2 - Family History Other Family History: No strong family history of premature coronary artery disease stroke or cancer - Social History Alcohol: reports: None Drugs: reports: none Occupation: Other Social History: Patient denies any tobacco alcohol illicit drug abuse - Exam General Appearance: NAD, awake alert Eye: PERRL, anicteric sclera ENT: normocephalic atraumatic, dry oral mucosa Neck: supple, symmetric, no JVD, no thyromegaly Heart: RRR, no murmur, no gallops, no rubs Heart - other findings: Tachycardia Respiratory: no wheezes, no rales, no ronchi Gastrointestinal: soft, non-tender, non-distended, normal bowel sounds Gastrointestinal - other findings: Obesity noted Extremities: no clubbing, no edema Skin: normal turgor, no lesions Neurological: no focal deficits Musculoskeletal: normal tone, normal strength, no muscle wasting Psychiatric: normal affect, normal behavior, A&O x 3 Hospitalist Results - Labs Result Diagrams: 10/21/20 14:48 10/21/20 14:48 Lab results: WBC 21.4 thou/uL (4.8-10.8) H 10/21/20 14:48 Hgb 12.9 g/dL (12.0-16.0) 10/21/20 14:48 Hct 41.6 % (36.0-47.0) 10/21/20 14:48 MCV 96.4 fL (78.0-98.0) 10/21/20 14:48 Plt Count 145 thou/uL (130-400) 10/21/20 14:48 Band Neuts % (Manual) 1 % (5-11) L 10/21/20 14:48 Sodium 153 mmol/L (136-145) H 10/21/20 14:48 Potassium 4.9 mmol/L (3.5-5.1) 10/21/20 14:48 Chloride 113 mmol/L (98-107) H 10/21/20 14:48 Carbon Dioxide 18 mmol/L (22-29) L 10/21/20 14:48 BUN 64 mg/dL (7.0-18.7) H 10/21/20 14:48 Creatinine 3.58 mg/dL (0.6-1.1) H 10/21/20 14:48 Glucose 1143 mg/dL (70-105) H* 10/21/20 14:48 Lactic Acid 1.6 mmol/L (0.5-2.2) 10/21/20 14:48 Calcium 8.7 mg/dL (7.8-10.44) 10/21/20 14:48 Total Bilirubin 0.4 mg/dL (0.2-1.2) 10/21/20 14:48 AST 12 U/L (5-34) 10/21/20 14:48 ALT 14 U/L (8-55) 10/21/20 14:48 Alkaline Phosphatase 135 U/L (40-110) H 10/21/20 14:48 Creatine Kinase 218 U/L (29-168) H 10/21/20 14:48 CK-MB (CK-2) 0.9 ng/mL (0-6.6) 10/21/20 14:48 Troponin I 0.090 ng/mL (< 0.028) H 10/21/20 14:48 B-Natriuretic Peptide 71.7 pg/mL (0-100) 10/21/20 14:48 Serum Total Protein 8.3 g/dL (6.0-8.3) 10/21/20 14:48 Albumin 3.9 g/dL (3.5-5.0) 10/21/20 14:48 Urine Ketones 10 mg/dL (Negative) A 10/21/20 15:30 Urine Blood 3+ (Negative) A 10/21/20 15:30 Urine Nitrite Negative (Negative) 10/21/20 15:30 Ur Leukocyte Esterase 75 Dick/uL (Negative) A 10/21/20 15:30 Urine RBC Greater than 50 HPF (0-3) A 10/21/20 15:30 Urine WBC 21-50 HPF (0-3) A 10/21/20 15:30 Ur Squamous Epith Cells 0-3 HPF (0-3) 10/21/20 15:30 Urine Bacteria 1+ HPF (None Seen) A 10/21/20 15:30 - EKG Interpretation EKG: Sinus tachycardia - Radiology Interpretation Chest x-ray Status: image reviewed by me Additional Comment: Cardiomegaly no pulmonary vascular congestion Hospitalist H&P A/P - Problem (1) DKA, type 2 Code(s): E11.10 - TYPE 2 DIABETES MELLITUS WITH KETOACIDOSIS WITHOUT COMA Status: Acute Qualifiers: Diabetes mellitus complication detail: without coma Qualified Code(s): E11.10 - Type 2 diabetes mellitus with ketoacidosis without coma (2) Type 2 myocardial infarction Code(s): I21.A1 - MYOCARDIAL INFARCTION TYPE 2 Status: Acute (3) Acute kidney failure Status: Acute (4) UTI (urinary tract infection) Status: Acute Qualifiers: Urinary tract infection type: acute cystitis (5) Dehydration Code(s): E86.0 - DEHYDRATION Status: Acute (6) Hypernatremia Code(s): E87.0 - HYPEROSMOLALITY AND HYPERNATREMIA Status: Acute (7) Leukocytosis Code(s): D72.829 - ELEVATED WHITE BLOOD CELL COUNT, UNSPECIFIED Status: Acute (8) Cardiomyopathy Code(s): I42.9 - CARDIOMYOPATHY, UNSPECIFIED Status: Chronic (9) Morbid obesity Code(s): E66.01 - MORBID (SEVERE) OBESITY DUE TO EXCESS CALORIES Status: Chronic - Plan Plan: Admission to IMCU DKA protocol order initiated Even though patient has systolic heart failure but currently patient appears significantly dehydrated and volume depleted, will continue IV fluid as ordered We will repeat labs tomorrow Continue insulin drip Monitor renal function and electrolytes and replace accordingly Once blood pressure stabilized then will resume her cardiac medication Continue empiric antibiotic therapy and follow-up on urine culture result Patient will be closely monitored in IMCU DVT prophylaxis Heparin 5000 subcu twice daily Prophylaxis Pepcid 20 mg daily CODE STATUS patient is full code
[2020-10-21] MEDS ORDERED: NS 0.9% w/ 20 MEQ KCL 1,000 ML/1,000 ML BAG IV SCH (17:45)
[2020-10-21 20:14] LABS: Glucose POC Confirmation 727 mg/dl (70-105)
[2020-10-21] MEDS ORDERED: Ondansetron PF 4 MG/2 ML Vial IVP PRN (22:36)
[2020-10-21] MEDS ORDERED: Ondansetron ODT 4 MG TAB PO PRN (22:36)
[2020-10-21] MEDS ORDERED: Senokot S 8.6-50 MG TAB PO PRN (22:36)
[2020-10-21] MEDS ORDERED: Calcium Carbonate 500 MG ChewTAB PO PRN (22:36)
[2020-10-21] MEDS ORDERED: Guaifenesin DM 100-10/5 ML UDCUP PO PRN (22:36)
[2020-10-21] MEDS ORDERED: NS 0.9% w/ 20 MEQ KCL 1,000 ML IV PRN ×2 (22:36)
[2020-10-21] MEDS ORDERED: Zolpidem Tartrate 5 MG TAB PO PRN (22:36)
[2020-10-21] MEDS ORDERED: HUMULIN R 100 UNITS in Sodium Chloride 0.9% 100 ML IVPB SCH (22:36)
[2020-10-21] MEDS ORDERED: Bisacodyl 10 MG SUPP PR PRN (22:36)
[2020-10-21] MEDS ORDERED: Sodium Chloride 0.9% 1,000 ML IV PRN ×3 (22:36)
[2020-10-21] MEDS ORDERED: Dextrose 5 %-0.45 % NaCl 1,000 ML IV PRN (22:36)
[2020-10-21] MEDS ORDERED: Loperamide HCl 2 MG CAP PO PRN (22:36)
[2020-10-21] MEDS: Sodium Chloride 0.9% 1,000 ML IV PRN (22:54)
[2020-10-21 23:24] VITALS: BMI 46.0
[2020-10-22] MEDS: Sodium Chloride 0.9% 1,000 ML IV PRN (01:12)
[2020-10-22 01:22] LABS: SARS-CoV-2 MS2 Positive; SARS-CoV-2 N Gene Negative; SARS-CoV-2 S Gene Negative; SARS-CoV-2 by NAA Not Detected (NotDetected); SARS-CoV-2 orf1ab Negative
[2020-10-22 01:26] LABS: Troponin I 0.131 ng/mL (< 0.028)
[2020-10-22 01:45] LABS: ALT (SGPT) 13 U/L (8-55); AST (SGOT) 13 U/L (5-34); Albumin 3.7 g/dL (3.5-5.0); Alkaline Phosphatase 114 U/L (40-110); Anion Gap 17 mmol/L (10-20); BUN (Urea Nitrogen) 58 mg/dL (7.0-18.7); Bilirubin, Total 0.3 mg/dL (0.2-1.2); Calc. Creatinine Clearance 63 mL/min (70-130); Calcium 8.2 mg/dL (7.8-10.44); Carbon Dioxide 22 mmol/L (22-29); Chloride 130 mmol/L (98-107); Glucose 371 mg/dL (70-105); Potassium 3.7 mmol/L (3.5-5.1); Protein, Total 7.7 g/dL (6.0-8.3); Sodium 165 mmol/L (136-145)
--- NOTE | 2020-10-22 01:58 | PDOC.BPN ---
- Brief Progress Note Encounter Date: 10/22/20 I was called and informed of the critical result. Patient is no DKA protocol on 3 with normal saline however sodium keeps creeping up. Sodium increased from 1 55-165. I asked that in be changed to half-normal saline Given how rapidly her sodium went up, plan to get help from nephrology if persists
[2020-10-22] MEDS: Cefepime 1 GM in Sodium Chloride 0.9% 100 ML IVPB SCH ×2 (02:04→14:45)
[2020-10-22] MEDS: D5 1/2 NS w/20 mEq KCL 1,000 ML IV PRN ×2 (02:06→05:46)
[2020-10-22] MEDS: HYDROcodone/Acetaminophen 5/325 mg Tablet PO PRN (03:15)
[2020-10-22 07:18] LABS: Hemoglobin A1c Greater than 14.0 % (4.0-6.0)
[2020-10-22 07:22] LABS: #Eosinphils 0.1 thou/uL (0.0-0.7); #Lymphocytes 2.3 thou/uL (1.20-3.40); #Monocytes 1.2 thou/uL (0.11-0.59); #Neutrophils 11.1 thou/uL (1.40-6.50); %Basophils 0.3 % (0.0-1.0); %Eosinophils 0.9 % (0.0-10.0); %Lymphocytes 15.7 % (21.0-51.0); %Neutrophils 75.1 % (42.0-75.0); Hemoglobin 12.6 g/dL (12.0-16.0); Mean Corpuscular HGB CONC 32.2 g/dL (32.0-36.0); Mean Corpuscular Hemoglobin 29.7 pg (27.0-31.0); Mean Corpuscular Volume 92.2 fL (78.0-98.0); Mean Platelet Volume 10.8 fL (7.4-10.4); Platelet Count 114 thou/uL (130-400); RBC Distribution Width 12.8 % (11.5-14.5); Red Blood Cell (RBC) Count 4.22 mill/uL (4.20-5.40); White Blood Cell (WBC) Count 14.8 thou/uL (4.8-10.8)
[2020-10-22 07:37] LABS: Anion Gap 18 mmol/L (10-20); BUN (Urea Nitrogen) 51 mg/dL (7.0-18.7); Calc. Creatinine Clearance 78 mL/min (70-130); Calcium 7.9 mg/dL (7.8-10.44); Carbon Dioxide 20 mmol/L (22-29); Chloride 133 mmol/L (98-107); Glucose 180 mg/dL (70-105); Phosphorus 2.8 mg/dL (2.3-4.7); Potassium 4.4 mmol/L (3.5-5.1); Sodium 167 mmol/L (136-145)
[2020-10-22 07:39] LABS: Troponin I 0.132 ng/mL (< 0.028)
[2020-10-22 08:37] LABS: Platelet Morphology Comment Appears Decreased; RBC Morphology Normal
[2020-10-22] MEDS ORDERED: Benzonatate 100 MG CAP PO PRN (08:51)
[2020-10-22] MEDS ORDERED: Loratadine 10 MG TAB PO PRN (08:51)
[2020-10-22] MEDS ORDERED: Cepastat Lozenges 1 LOZ PO PRN (08:51)
[2020-10-22] MEDS ORDERED: Sodium Chloride 0.65% Nasal 44 ML BOT EA NARE PRN (08:51)
[2020-10-22] MEDS ORDERED: Diabetic Tussin 200 MG/10 ML UDCUP PO PRN (08:51)
[2020-10-22] MEDS ORDERED: hydrALAZINE 20 MG/ML VIAL SLOW IVP PRN (08:51)
[2020-10-22] MEDS ORDERED: FLU VACC QS2020-21(6MOS UP)/PF 60 MCG/0.5 ML SYRINGE IM ONE (09:00)
[2020-10-22] MEDS: Famotidine 20 MG TAB PO SCH (10:27)
[2020-10-22] MEDS: Aspirin 325 MG TAB PO SCH (10:27)
[2020-10-22] MEDS: Heparin 5,000 UNITS/ML VIAL SC SCH ×2 (10:27→20:36)
[2020-10-22] MEDS: Dextrose 5% in Water 1,000 ML IV SCH ×2 (10:27→20:36)
--- NOTE | 2020-10-22 10:57 | PDOC.HOSPP ---
- Subjective Encounter Date: 10/22/20 Encounter Time: 07:30 Subjective: Patient seen and examined bedside today, no overnight event, no new complaint, patient is overall doing better, she denies any dizziness. No shortness of breath, no fever, - Objective Vital Signs & Weight: Vital Signs (12 hours) Temp 10/22/20 07:00 97.9 F 10/22/20 03:39 97.1 F L 10/21/20 23:26 97.8 F Weight Weight 285 lb 11.505 oz Most Recent Monitor Data Heart Rate from ECG 97 NIBP 129/74 NIBP BP-Mean 92 Respiration from ECG 10 SpO2 100 I&O: 10/21/20 10/22/20 10/23/20 06:59 06:59 06:59 Intake Total 2628 Output Total 700 Balance 1928 Result Diagrams: 10/22/20 06:55 10/22/20 06:56 Additional Labs: Accuchecks 10/22/20 10/22/20 10/22/20 08:28 07:03 06:10 POC Glucose 152 H 160 H 174 H 10/22/20 10/22/20 10/22/20 05:06 04:04 03:03 POC Glucose 166 H 183 H 171 H 10/22/20 10/22/20 10/22/20 02:06 00:57 00:08 POC Glucose 239 H 286 H 354 H 10/21/20 10/21/20 22:59 22:04 POC Glucose 445 H 409 H EKG Reviewed by me: Yes Hospitalist ROS - Review of Systems Constitutional: reports: weakness. denies: fever, chills, sweats, malaise, other ENT: denies: ear pain, ear discharge, nose pain, nose discharge, nose congestion, mouth pain, mouth swelling, throat pain, throat swelling, other Respiratory: denies: cough, dry, shortness of breath, hemoptysis, SOB with excertion, pleuritic pain, sputum, wheezing, other Cardiovascular: denies: chest pain, palpitations, orthopnea, paroxysmal noc. dys pnea, edema, light headedness, other Gastrointestinal: denies: nausea, vomiting, abdominal pain, diarrhea, constipation, melena, hematochezia, other Genitourinary: denies: dysuria, frequency, incontinence, hematuria, retention, other Musculoskeletal: denies: neck pain, shoulder pain, arm pain, back pain, hand pain, leg pain, foot pain, other - Medication Medications: Active Medications Generic Name Dose Route Start Last Admin Trade Name Liat PRN Reason Stop Dose Admin Hydrocodone Bitart/Acetaminophen 1 tab 10/21/20 22:36 10/22/20 03:15 Hydrocodone/Acetaminophen 5/325 Mg Tablet PO 1 tab Q4H PRN Administration Moderate Pain (4-6) Aspirin 325 mg 10/22/20 09:00 10/22/20 10:27 Aspirin 325 Mg Tab PO 325 mg DAILY EFREM Administration Famotidine 20 mg 10/22/20 09:00 10/22/20 10:27 Famotidine 20 Mg Tab PO 20 mg DAILY EFREM Administration Heparin Sodium (Porcine) 5,000 units 10/22/20 09:00 10/22/20 10:27 Heparin 5,000 Units/Ml Vial SC 5,000 units Q12HR EFREM Administration Insulin Human Regular 100 101 mls @ 0 mls/hr 10/21/20 22:36 10/21/20 23:39 units/ Sodium Chloride IVPB 101 mls INF EFREM Administration Protocol Titrate Cefepime HCl 1 gm/ Sodium 100 mls @ 200 mls/hr 10/22/20 02:00 10/22/20 02:04 Chloride IVPB 100 mls 0200,1400 EFREM Administration Dextrose/Water 1,000 mls @ 100 mls/hr 10/22/20 09:00 10/22/20 10:27 D5w IV 1,000 mls .Q10H EFREM Administration Sertraline HCl 25 mg 10/22/20 09:00 10/22/20 10:27 Sertraline Hcl 25 Mg Tab PO Not Given DAILY EFREM Sodium Chloride 10 ml 10/22/20 09:00 10/22/20 10:28 Flush - Normal Saline 10 Ml Syringe IVF 10 ml Q12HR EFREM Administration - Exam General Appearance: NAD, awake alert Eye: PERRL, anicteric sclera ENT: normocephalic atraumatic, no oropharyngeal lesions Neck: supple, symmetric, no JVD, no thyromegaly Heart: RRR, no murmur, no gallops, no rubs Respiratory: no wheezes, no rales, no ronchi Gastrointestinal: soft, non-tender, non-distended, normal bowel sounds Gastrointestinal - other findings: Obesity noted Extremities: no clubbing, no edema Skin: normal turgor, no lesions Neurological: no focal deficits Musculoskeletal: normal tone, normal strength, no muscle wasting Psychiatric: normal affect, normal behavior, A&O x 3 Hosp A/P (1) DKA, type 2 Code(s): E11.10 - TYPE 2 DIABETES MELLITUS WITH KETOACIDOSIS WITHOUT COMA Status: Acute Qualifiers: Diabetes mellitus complication detail: without coma Qualified Code(s): E11.10 - Type 2 diabetes mellitus with ketoacidosis without coma (2) Type 2 myocardial infarction Code(s): I21.A1 - MYOCARDIAL INFARCTION TYPE 2 Status: Acute (3) Acute kidney failure Status: Acute (4) UTI (urinary tract infection) Status: Acute Qualifiers: Urinary tract infection type: acute cystitis (5) Dehydration Code(s): E86.0 - DEHYDRATION Status: Acute (6) Hypernatremia Code(s): E87.0 - HYPEROSMOLALITY AND HYPERNATREMIA Status: Acute (7) Leukocytosis Code(s): D72.829 - ELEVATED WHITE BLOOD CELL COUNT, UNSPECIFIED Status: Acute (8) Cardiomyopathy Code(s): I42.9 - CARDIOMYOPATHY, UNSPECIFIED Status: Chronic (9) Morbid obesity Code(s): E66.01 - MORBID (SEVERE) OBESITY DUE TO EXCESS CALORIES Status: Chronic - Plan old records reviewed/req, continue antibiotics, DVT proph w/heparin Patient has increasing sodium and chloride, today we will change IV fluid to 5% dextrose with water, will continue along with that insulin drip, will monitor sodium every 6 hourly, her creatinine is improving, patient is not fluid overloaded, she is on room air, she does not any shortness of breath, will continue to monitor in IMCU Leukocytosis improving, urine is suspected for infection, currently on cefepime, patient has tolerated medication, will follow up on culture result and based on culture result we will de-escalate antibiotic therapy to oral Tomorrow we will repeat labs again , patient will need diabetes education given new onset diabetes, Continue to monitor platelet count, if platelet count drops then discontinue heparin for DVT prophylaxis However goal is today to improve her sodium level and continue insulin drip, her ketones has been resolved, her hemoglobin A1c is more than 14, will consult dietitian today.
[2020-10-22 12:46] LABS: Sodium 165 mmol/L (136-145)
[2020-10-22] MEDS ORDERED: Fluconazole In NaCl,Iso-Osm 200 MG in Premix Bag 1 BAG IVPB SCH (13:00)
[2020-10-22 20:34] LABS: Sodium 163 mmol/L (136-145)
[2020-10-22] MEDS: Acetaminophen 325 MG TAB PO PRN (20:36)
[2020-10-23] MEDS: Cefepime 1 GM in Sodium Chloride 0.9% 100 ML IVPB SCH (02:13)
[2020-10-23 04:17] LABS: #Eosinphils 0.4 thou/uL (0.0-0.7); #Lymphocytes 2.2 thou/uL (1.20-3.40); #Monocytes 0.7 thou/uL (0.11-0.59); #Neutrophils 9.1 thou/uL (1.40-6.50); %Basophils 0.4 % (0.0-1.0); %Eosinophils 3.2 % (0.0-10.0); %Lymphocytes 17.7 % (21.0-51.0); %Monocytes 5.5 % (0.0-10.0); %Neutrophils 73.2 % (42.0-75.0); Hemoglobin 11.5 g/dL (12.0-16.0); Mean Corpuscular HGB CONC 32.2 g/dL (32.0-36.0); Mean Corpuscular Hemoglobin 29.4 pg (27.0-31.0); Mean Corpuscular Volume 91.2 fL (78.0-98.0); Mean Platelet Volume 11.4 fL (7.4-10.4); Platelet Count 81 thou/uL (130-400); RBC Distribution Width 12.8 % (11.5-14.5); Red Blood Cell (RBC) Count 3.91 mill/uL (4.20-5.40); White Blood Cell (WBC) Count 12.4 thou/uL (4.8-10.8)
[2020-10-23 04:18] LABS: Sodium 151 mmol/L (136-145)
[2020-10-23 04:21] LABS: Anion Gap 14 mmol/L (10-20); BUN (Urea Nitrogen) 31 mg/dL (7.0-18.7); Calc. Creatinine Clearance 126 mL/min (70-130); Calcium 7.2 mg/dL (7.8-10.44); Carbon Dioxide 19 mmol/L (22-29); Chloride 123 mmol/L (98-107); Glucose 192 mg/dL (70-105); Potassium 3.5 mmol/L (3.5-5.1); Sodium 152 mmol/L (136-145)
[2020-10-23] MEDS: Dextrose 5% in Water 1,000 ML IV SCH ×2 (05:00→17:46)
[2020-10-23] MEDS: Heparin 5,000 UNITS/ML VIAL SC SCH (11:04)
[2020-10-23] MEDS: Famotidine 20 MG TAB PO SCH (11:05)
[2020-10-23] MEDS: Aspirin 325 MG TAB PO SCH (11:06)
--- NOTE | 2020-10-23 15:26 | PDOC.HOSPP ---
- Subjective Encounter Date: 10/23/20 Encounter Time: 10:30 Subjective: pt up in bed feels hungry and wants to eat. - Objective Vital Signs & Weight: Vital Signs (12 hours) Temp Pulse Ox 10/23/20 11:30 97.6 F 10/23/20 08:00 100 10/23/20 07:28 97.6 F 10/23/20 04:02 97.1 F L Weight Weight 285 lb 11.505 oz Most Recent Monitor Data Heart Rate from ECG 90 NIBP 100/71 NIBP BP-Mean 80 Respiration from ECG 10 SpO2 99 I&O: 10/22/20 10/23/20 10/24/20 06:59 06:59 06:59 Intake Total 2628 1974.1 Output Total 700 20 Balance 1927 1953.1 Result Diagrams: 10/23/20 03:20 10/23/20 03:20 Additional Labs: Accuchecks 10/23/20 10/23/20 10/23/20 13:11 11:05 09:59 POC Glucose 154 H 194 H 193 H 10/23/20 10/23/20 10/23/20 09:06 07:59 06:24 POC Glucose 216 H 204 H 208 H 10/23/20 10/23/20 10/23/20 05:02 04:20 03:15 POC Glucose 205 H 193 H 176 H 10/23/20 10/23/20 10/22/20 02:15 01:11 23:58 POC Glucose 195 H 174 H 182 H 10/22/20 10/22/20 10/22/20 23:12 22:09 21:19 POC Glucose 172 H 188 H 190 H 10/22/20 10/22/20 10/22/20 20:15 19:23 17:53 POC Glucose 183 H 201 H 186 H 10/22/20 10/22/20 10/21/20 16:41 15:39 17:46 POC Glucose 181 H 164 H Greater than 600 H* 10/21/20 16:48 POC Glucose Greater than 600 H* Hospitalist ROS - Review of Systems Respiratory: denies: cough, dry, shortness of breath, hemoptysis, SOB with excertion, pleuritic pain, sputum, wheezing, other Cardiovascular: denies: chest pain, palpitations, orthopnea, paroxysmal noc. dyspnea, edema, light headedness, other Gastrointestinal: denies: nausea, vomiting, abdominal pain, diarrhea, constipati on, melena, hematochezia, other - Medication Medications: Active Medications Generic Name Dose Route Start Last Admin Trade Name Freq PRN Reason Stop Dose Admin Acetaminophen 650 mg 10/21/20 22:36 10/22/20 20:36 Acetaminophen 325 Mg Tab PO 650 mg Q4H PRN Administration Headache/Fever/Mild Pain (1-3) Hydrocodone Bitart/Acetaminophen 1 tab 10/21/20 22:36 10/22/20 03:15 Hydrocodone/Acetaminophen 5/325 Mg Tablet PO 1 tab Q4H PRN Administration Moderate Pain (4-6) Aspirin 325 mg 10/22/20 09:00 10/23/20 11:06 Aspirin 325 Mg Tab PO 325 mg DAILY EFREM Administration Famotidine 20 mg 10/22/20 09:00 10/23/20 11:05 Famotidine 20 Mg Tab PO 20 mg DAILY EFREM Administration Heparin Sodium (Porcine) 5,000 units 10/22/20 09:00 10/23/20 11:04 Heparin 5,000 Units/Ml Vial SC Not Given Q12HR EFREM Dextrose/Water 1,000 mls @ 100 mls/hr 10/22/20 09:00 10/23/20 05:00 D5w IV 1,000 mls .Q10H EFREM Administration Sertraline HCl 25 mg 10/22/20 09:00 10/23/20 11:05 Sertraline Hcl 25 Mg Tab PO 25 mg DAILY EFREM Administration Sodium Chloride 10 ml 10/22/20 09:00 10/23/20 11:06 Flush - Normal Saline 10 Ml Syringe IVF Not Given Q12HR EFREM - Exam Heart: negative: RRR, no murmur, no gallops, no rubs, normal peripheral pulses, irregular, diminshed peripheral pulses, murmur present, II/IV, III/IV Respiratory: negative: CTAB, no wheezes, no rales, no ronchi, normal chest e xpansion, no tachypnea, normal percussion, rales, rhonchi, tachypneic, wheezes Extremities: 1+ LE edema Hosp A/P (1) DKA (diabetic ketoacidoses) Code(s): E11.10 - TYPE 2 DIABETES MELLITUS WITH KETOACIDOSIS WITHOUT COMA Status: Acute (2) Thrombocytopenia Code(s): D69.6 - THROMBOCYTOPENIA, UNSPECIFIED Status: Acute (3) DKA, type 2 Code(s): E11.10 - TYPE 2 DIABETES MELLITUS WITH KETOACIDOSIS WITHOUT COMA Status: Acute Qualifiers: Diabetes mellitus complication detail: without coma Qualified Code(s): E11.10 - Type 2 diabetes mellitus with ketoacidosis without coma (4) Dehydration Code(s): E86.0 - DEHYDRATION Status: Acute (5) Morbid obesity Code(s): E66.01 - MORBID (SEVERE) OBESITY DUE TO EXCESS CALORIES Status: Chronic (6) Hypernatremia Code(s): E87.0 - HYPEROSMOLALITY AND HYPERNATREMIA Status: Acute (7) CKD (chronic kidney disease) stage 3, GFR 30-59 ml/min Code(s): N18.30 - CHRONIC KIDNEY DISEASE, STAGE 3 UNSPECIFIED Status: Acute - Plan will stop insulin drip and switch to lantus. pt states that she has not been taking any medications for her diabetes. She also has thrombocytopenia will stop all her abx and hold heparin. will continue iv fluids and have encouraged her to drink more water. Her blood cx appears contaminant.
[2020-10-23] MEDS ORDERED: Insulin Glargine 8 UNITS in Pre-Filled Syringe SC SCH (16:00)
[2020-10-23 19:37] LABS: Anion Gap 16 mmol/L (10-20); BUN (Urea Nitrogen) 18 mg/dL (7.0-18.7); Calc. Creatinine Clearance 149 mL/min (70-130); Calcium 7.3 mg/dL (7.8-10.44); Carbon Dioxide 18 mmol/L (22-29); Chloride 116 mmol/L (98-107); Glucose 308 mg/dL (70-105); Potassium 3.9 mmol/L (3.5-5.1); Sodium 146 mmol/L (136-145)
[2020-10-23] MEDS: Acetaminophen 325 MG TAB PO PRN (21:09)
[2020-10-23] MEDS ORDERED: Dextrose 50% Abboject 50 ML SYRINGE SLOW IVP PRN (21:13)
[2020-10-23] MEDS ORDERED: Dextrose 5% in Water 1,000 ML IV PRN (21:13)
[2020-10-23] MEDS: HumaLOG 300 UNITS/3 ML VIAL SC PRN (21:38)
[2020-10-24] MEDS: HumaLOG 300 UNITS/3 ML VIAL SC PRN ×4 (06:32→20:59)
[2020-10-24 07:31] LABS: Anion Gap 19 mmol/L (10-20); BUN (Urea Nitrogen) 15 mg/dL (7.0-18.7); Calc. Creatinine Clearance 155 mL/min (70-130); Calcium 7.4 mg/dL (7.8-10.44); Carbon Dioxide 16 mmol/L (22-29); Chloride 117 mmol/L (98-107); Glucose 338 mg/dL (70-105); Potassium 4.8 mmol/L (3.5-5.1); Sodium 147 mmol/L (136-145)
[2020-10-24] MEDS: Aspirin 325 MG TAB PO SCH (09:29)
[2020-10-24] MEDS: Famotidine 20 MG TAB PO SCH (09:29)
[2020-10-24 10:02] LABS: Band 1 % (5-11); Eosinophils 2 % (0-10); Hemoglobin 11.3 g/dL (12.0-16.0); Lymphocytes 21 % (21-51); MDiff Complete? YES; Mean Corpuscular HGB CONC 31.6 g/dL (32.0-36.0); Mean Corpuscular Hemoglobin 28.5 pg (27.0-31.0); Mean Corpuscular Volume 89.9 fL (78.0-98.0); Mean Platelet Volume 11.1 fL (7.4-10.4); Monocytes 10 % (0-10); Neutrophil 64 % (42-75); Nucleated RBC 1 % (0); Platelet Count 84 thou/uL (130-400); Platelet Morphology Comment Appears Decreased; RBC Distribution Width 12.6 % (11.5-14.5); Reactive Lymphocytes 2 % (0-10); Red Blood Cell (RBC) Count 3.97 mill/uL (4.20-5.40); White Blood Cell (WBC) Count 9.5 thou/uL (4.8-10.8)
--- NOTE | 2020-10-24 18:58 | PDOC.HOSPP ---
- Subjective Encounter Date: 10/24/20 Encounter Time: 13:00 Subjective: Patient up in bed no complaints. - Objective Vital Signs & Weight: Vital Signs (12 hours) Temp Pulse Resp BP Pulse Ox 10/24/20 16:00 98.2 F 91 20 102/67 90 L 10/24/20 13:43 98.0 F 103 H 18 107/71 99 10/24/20 11:00 99 10/24/20 08:00 98 Weight Weight 285 lb 11.505 oz Most Recent Monitor Data Heart Rate from ECG 101 NIBP 140/82 NIBP BP-Mean 101 Respiration from ECG 18 SpO2 98 I&O: 10/23/20 10/24/20 10/25/20 06:59 06:59 06:59 Intake Total 1974.1 2670 240 Output Total 20 850 Balance 1954.1 1820 240 Result Diagrams: 10/24/20 08:29 10/24/20 06:56 Additional Labs: Accuchecks 10/24/20 10/24/20 10/23/20 10:33 05:35 20:28 POC Glucose 351 H 280 H 262 H Hospitalist ROS - Review of Systems Cardiovascular: denies: chest pain, palpitations, orthopnea, paroxysmal noc. dyspnea, edema, light headedness, other Gastrointestinal: denies: nausea, vomiting, abdominal pain, diarrhea, constipation, melena, hematochezia, other Genitourinary: denies: dysuria, frequency, incontinence, hematuria, retention, other - Medication Medications: Active Medications Generic Name Dose Route Start Last Admin Trade Name Freq PRN Reason Stop Dose Admin Acetaminophen 650 mg 10/21/20 22:36 10/23/20 21:09 Acetaminophen 325 Mg Tab PO 650 mg Q4H PRN Administration Headache/Fever/Mild Pain (1-3) Hydrocodone Bitart/Acetaminophen 1 tab 10/21/20 22:36 10/22/20 03:15 Hydrocodone/Acetaminophen 5/325 Mg Tablet PO 1 tab Q4H PRN Administration Moderate Pain (4-6) Aspirin 325 mg 10/22/20 09:00 10/24/20 09:29 Aspirin 325 Mg Tab PO 325 mg DAILY EFREM Administration Famotidine 20 mg 10/22/20 09:00 10/24/20 09:29 Famotidine 20 Mg Tab PO 20 mg DAILY EFREM Administration Heparin Sodium (Porcine) 5,000 units 10/22/20 09:00 10/23/20 11:04 Heparin 5,000 Units/Ml Vial SC Not Given Q12HR EFREM Insulin Human Lispro 0 units 10/23/20 21:13 10/24/20 16:48 Humalog 300 Units/3 Ml Vial SC 6 unit .MODERATE SLIDING SC PRN Administration Moderate Correctional Scale Insulin Human Lispro 0 units 10/23/20 21:13 10/23/20 21:38 Humalog 300 Units/3 Ml Vial SC 3 unit .BEDTIME SLIDING SC PRN Administration Bedtime Correctional Scale Sertraline HCl 25 mg 10/22/20 09:00 10/24/20 09:32 Sertraline Hcl 25 Mg Tab PO 25 mg DAILY EFREM Administration Sodium Chloride 10 ml 10/22/20 09:00 10/24/20 09:32 Flush - Normal Saline 10 Ml Syringe IVF 10 ml Q12HR EFREM Administration Zolpidem Tartrate 5 mg 10/21/20 22:36 10/23/20 21:45 Zolpidem Tartrate 5 Mg Tab PO 5 mg HSPRN PRN Administration Insomnia - Exam Heart: negative: RRR, no murmur, no gallops, no rubs, normal peripheral pulses, irregular, diminshed peripheral pulses, murmur present, II/IV, III/IV Respiratory: negative: CTAB, no wheezes, no rales, no ronchi, normal chest e xpansion, no tachypnea, normal percussion, rales, rhonchi, tachypneic, wheezes Gastrointestinal: negative: soft, non-tender, non-distended, normal bowel sounds, no palpable masses, no hepatomegaly, no splenomegaly, no bruit, no guarding, no rigidity, tender to palpation, distended, diminished bowl sounds, voluntary guarding Extremities: negative: no cyanosis, no clubbing, no edema, 1+ LE edema, 2+ LE edema, clubbing Hosp A/P (1) DKA (diabetic ketoacidoses) Code(s): E11.10 - TYPE 2 DIABETES MELLITUS WITH KETOACIDOSIS WITHOUT COMA Status: Acute (2) Thrombocytopenia Code(s): D69.6 - THROMBOCYTOPENIA, UNSPECIFIED Status: Acute (3) DKA, type 2 Code(s): E11.10 - TYPE 2 DIABETES MELLITUS WITH KETOACIDOSIS WITHOUT COMA Status: Acute Qualifiers: Diabetes mellitus complication detail: without coma Qualified Code(s): E11.10 - Type 2 diabetes mellitus with ketoacidosis without coma (4) Dehydration Code(s): E86.0 - DEHYDRATION Status: Acute (5) Morbid obesity Code(s): E66.01 - MORBID (SEVERE) OBESITY DUE TO EXCESS CALORIES Status: C hronic (6) Hypernatremia Code(s): E87.0 - HYPEROSMOLALITY AND HYPERNATREMIA Status: Acute (7) CKD (chronic kidney disease) stage 3, GFR 30-59 ml/min Code(s): N18.30 - CHRONIC KIDNEY DISEASE, STAGE 3 UNSPECIFIED Status: Acute - Plan will stop insulin drip and switch to lantus. pt states that she has not been taking any medications for her diabetes. She also has thrombocytopenia will stop all her abx and hold heparin. will continue iv fluids and have encouraged her to drink more water. Her blood cx appears contaminant. 10/24 will check hbg alc. Patient's platelets have improved mildly. We will continue to monitor. Possible discharge home in a.m. if platelets continue to improve.
[2020-10-24] MEDS: Acetaminophen 325 MG TAB PO PRN (20:59)
[2020-10-24] MEDS ORDERED: Insulin Glargine 8 UNITS in Pre-Filled Syringe SC SCH (21:00)
[2020-10-24] MEDS: HYDROcodone/Acetaminophen 5/325 mg Tablet PO PRN (23:20)
[2020-10-25] MEDS: HumaLOG 300 UNITS/3 ML VIAL SC PRN ×2 (06:05→11:17)
[2020-10-25 07:18] LABS: #Eosinphils 0.2 thou/uL (0.0-0.7); #Lymphocytes 2.1 thou/uL (1.20-3.40); #Monocytes 0.5 thou/uL (0.11-0.59); #Neutrophils 4.7 thou/uL (1.40-6.50); %Basophils 0.2 % (0.0-1.0); %Eosinophils 2.7 % (0.0-10.0); %Monocytes 6.2 % (0.0-10.0); %Neutrophils 62.9 % (42.0-75.0); Hemoglobin 10.9 g/dL (12.0-16.0); Mean Corpuscular HGB CONC 32.9 g/dL (32.0-36.0); Mean Corpuscular Volume 91.2 fL (78.0-98.0); Mean Platelet Volume 10.9 fL (7.4-10.4); Platelet Count 86 thou/uL (130-400); RBC Distribution Width 12.3 % (11.5-14.5); Red Blood Cell (RBC) Count 3.65 mill/uL (4.20-5.40); White Blood Cell (WBC) Count 7.4 thou/uL (4.8-10.8)
[2020-10-25 07:19] LABS: Hemoglobin A1c 13.6 % (4.0-6.0)
[2020-10-25 07:31] LABS: ALT (SGPT) 16 U/L (8-55); AST (SGOT) 27 U/L (5-34); Alkaline Phosphatase 112 U/L (40-110); Anion Gap 12 mmol/L (10-20); BUN (Urea Nitrogen) 12 mg/dL (7.0-18.7); Bilirubin, Total 0.9 mg/dL (0.2-1.2); Calc. Creatinine Clearance 150 mL/min (70-130); Calcium 8.1 mg/dL (7.8-10.44); Carbon Dioxide 27 mmol/L (22-29); Chloride 109 mmol/L (98-107); Globulin 3.4 g/dL (2.4-3.5); Glucose 326 mg/dL (70-105); Potassium 4.2 mmol/L (3.5-5.1); Protein, Total 6.4 g/dL (6.0-8.3); Sodium 144 mmol/L (136-145)
[2020-10-25] MEDS: Famotidine 20 MG TAB PO SCH (09:16)
[2020-10-25] MEDS: Aspirin 325 MG TAB PO SCH (09:16)
[2020-10-25] MEDS ORDERED: HumaLOG 300 UNITS/3 ML VIAL SC SCH (12:00)
--- NOTE | 2020-10-25 14:06 | PDOC.DS.DS ---
Provider - Provider Date of Admission: 10/21/20 16:17 Date of Discharge: 10/25/20 Admitting Provider: Cameron Matos MD Primary Care Physician: Viviana Jurdao Course - Hospital Course Hospital Course: Patient is a very pleasant 39-year-old female who comes into the hospital with generalized weakness and dizziness. Patient was noted to be hypotensive. She was given IV fluids and noted to have a blood sugar in the 1000s. She was also noted to have an elevated creatinine. At this time she was started on a DKA protocol she continued to improve. She did receive antibiotics initially. Her blood culture 1 was a contaminate bacillus species. She continued to improve her hemoglobin A1c was 13. Patient states that she does not take any insulin at home. I will give her home health she has been educated on how to administer blood sugars. I have told her to take her blood sugar before administering the insulin. We will resume patient's home medications. She was noted to have thrombocytopenia. At this time her heparin was discontinued and so her anti biotics. Her platelets continue to improve. She will follow up with her primary care doctor for repeat CBC. Resuscitation Status: 10/21/20 16:56 Resuscitation Status Routine Resuscitation Status: FULL: Full Resuscitation - Labs Lab Results: 10/25/20 06:47 10/25/20 06:47 Abnormal Lab Results - Last 48 hrs 10/23/20 18:58: Sodium 146 H, Chloride 116 H, Carbon Dioxide 18 L, Calcium 7.3 L 10/24/20 06:56: Sodium 147 H, Chloride 117 H, Carbon Dioxide 16 L, Calcium 7.4 L 10/24/20 08:29: RBC 3.97 L, Hgb 11.3 L, Hct 35.7 L, MCHC 31.6 L, Plt Count 84 L, MPV 11.1 H, Band Neuts % (Manual) 1 L, Nucleated RBCs # (Man) 1 H, Plt Morphology Comment Appears Decreased L 10/25/20 06:47: Chloride 109 H, Alkaline Phosphatase 112 H, Albumin 3.0 L, Albumin/Globulin Ratio 0.9 L 10/25/20 06:47: Hemoglobin A1c 13.6 H 10/25/20 06:47: RBC 3.65 L, Hgb 10.9 L, Hct 33.3 L, Plt Count 86 L, MPV 10.9 H Microbiology - Entire Visit 10/21/20 14:53 Venous blood - Left Hand Blood Culture - Final Bacillus species,NOT anthracis 10/21/20 14:48 Venous blood - Right Hand Blood Culture - Preliminary NO GROWTH AT 48 HOURS 10/21/20 15:30 Urine voided Urine Culture - Final Presumptive Sonja albicans - Physical Exam Vitals: Vital Signs (12 hours) Temp Pulse Resp BP Pulse Ox 10/25/20 08:57 96 10/25/20 07:42 98.0 F 95 18 100/71 96 10/25/20 04:10 98.0 F 79 20 101/66 98 Weight Weight 285 lb 11.505 oz Most Recent Monitor Data Heart Rate from ECG 101 NIBP 140/82 NIBP BP-Mean 101 Respiration from ECG 18 SpO2 98 Physical Exam: The patient was seen and examined on the day of discharge. Problem - Problem (1) DKA (diabetic ketoacidoses) Code(s): E11.10 - TYPE 2 DIABETES MELLITUS WITH KETOACIDOSIS WITHOUT COMA Status: Acute (2) Thrombocytopenia Code(s): D69.6 - THROMBOCYTOPENIA, UNSPECIFIED Status: Acute (3) DKA, type 2 Code(s): E11.10 - TYPE 2 DIABETES MELLITUS WITH KETOACIDOSIS WITHOUT COMA Status: Acute Qualifiers: Diabetes mellitus complication detail: without coma Qualified Code(s): E11.10 - Type 2 diabetes mellitus with ketoacidosis without coma (4) Dehydration Code(s): E86.0 - DEHYDRATION Status: Acute (5) Morbid obesity Code(s): E66.01 - MORBID (SEVERE) OBESITY DUE TO EXCESS CALORIES Status: Chronic (6) Hypernatremia Code(s): E87.0 - HYPEROSMOLALITY AND HYPERNATREMIA Status: Acute (7) CKD (chronic kidney disease) stage 3, GFR 30-59 ml/min Code(s): N18.30 - CHRONIC KIDNEY DISEASE, STAGE 3 UNSPECIFIED Status: Acute Plan - Discharge Medications Prescriptions: Aspirin Chewable [Aspirin Chewable Tablet] 81 mg PO DAILY #30 tab Insulin NPH Hum/Reg Insulin HM [Novolin 70-30 Flexpen] 15 unit SQ BID #1 in suln.pen Home Medications: Medication Instructions Recorded Confirmed Type Carvedilol 6.25 mg PO BID 04/29/20 10/21/20 History Sertraline HCl [Zoloft] 25 mg PO DAILY 04/29/20 10/21/20 History Potassium Chloride 10 meq PO DAILY 10/21/20 10/21/20 History Sacubitril/Valsartan [Entresto 24 24 - 26 tablet PO BID 10/21/20 10/21/20 History mg-26 mg Tablet] Spironolactone 25 mg PO DAILY 10/21/20 10/21/20 History Torsemide 20 mg PO DAILY 10/21/20 10/21/20 History Aspirin Chewable [Aspirin Chewable 81 mg PO DAILY #30 tab 10/25/20 Rx Tablet] Insulin NPH Hum/Reg Insulin HM 15 unit SQ BID #1 insuln.pen 10/25/20 Rx [Novolin 70-30 Flexpen] Allergies: latex Allergy (Verified 04/28/20 22:48) Penicillins Allergy (Verified 04/28/20 22:48) - Discharge Instructions Discharge Instructions:: follow up with primary care and please check your platelets. Activity:: Activity as Tolerated Nourishment:: Diabetic Diet, Heart Healthy Diet - Follow up Plan Referrals: Christ Goodrich MD [Primary Care Provider] - 7 Days Disposition: HOME Quality - Care Measures CORE MEASURES:: N/A
[2020-10-25 16:41] VITALS: BP 123/80; TEMP 97.9
[2020-10-26] MEDS ORDERED: Lisinopril 5 MG TAB PO SCH (09:00)
--- NOTE | 2020-10-28 08:42 | PQF ---
CLINICAL DOCUMENTATION CLARIFICATION FORM: Dear : Nadira Wall Date / Time: 10/28/2020 08:41 Please exercise your independent, professional judgment in responding to the clarification form. Clinical indicators are provided on the bottom of this form for your review Please check appropriate box(es): AMI TYPE: [ ] Type 2 IA (T2MI) secondary to: [ ] DKA [ ] JUDI [x ] Other please specify:____demand [ ] No type 2 IA [ ] Other diagnosis, please specify [ ] Unable to determine Physician Signature: Date/Time: For continuity of documentation, please document condition throughout progress notes and discharge summary. Thank You. To be completed by CDI/Coding staff for physician review: Present Clinical Indicators - Signs / Symptoms / Labs Results and Location in Medical Record [x] Type 2 myocardial infarction HP 10/21 [x] CC: generalized weakness HP 10/21 [x] Denies: Chest pain HP 10/21 [x] EKG: T waves are present ED Notes 10/21 [x] Tachycardia ED Notes 10/21 [x] Troponin: 10/21=0.090 10/22=0.132 Laboratory 10/21 Present Risk Factors Results and Location in Medical Record [x] CHF HP 10/21 [x] HTN HP 10/21 [x] DM HP 10/21 [x] JUDI HP 10/21 [x] CMP HP 10/21 [x] Morbid Obesity HP 10/21 Present Treatments Results and Location in Medical Record [x] IVF JAN 10 [x] Aspirin 325mg Oral JAN 10 [x] Carvidilol 6.25mg Oral JAN 10 CDS/Lighthouse Keeper Signature:Cora Montanez Phone #: [phone] Date/Time:10/28/2020 This is a permanent part of the Medical Record [facility]
== END 2020-10-25 17:41 | disposition home or self-care (01) | DRG 637 ==
LOC: ERS 13:31 → IMCU/EMU 16:17 → T4-B 10-24 10:54
PROVIDERS: ADMIT Internal Medicine; ATTEND Internal Medicine
DX: E11.10 Type 2 diabetes mellitus with ketoacidosis without coma (principal); I21.A1 Myocardial infarction type 2; I13.0 Hypertensive heart and chronic kidney disease with heart failure and stage 1 through stage 4 chronic kidney disease, or unspecified chronic kidney disease; I50.22 Chronic systolic (congestive) heart failure; N17.9 Acute kidney failure, unspecified; N30.00 Acute cystitis without hematuria; E87.0 Hyperosmolality and hypernatremia; I42.9 Cardiomyopathy, unspecified; Z68.42 Body mass index [BMI] 45.0-49.9, adult; Z20.828 Contact with and (suspected) exposure to other viral communicable diseases; E11.22 Type 2 diabetes mellitus with diabetic chronic kidney disease; D69.6 Thrombocytopenia, unspecified; N18.30 Chronic kidney disease, stage 3 unspecified; E86.0 Dehydration; D72.829 Elevated white blood cell count, unspecified; E66.01 Morbid (severe) obesity due to excess calories; I95.9 Hypotension, unspecified; Z95.0 Presence of cardiac pacemaker; Z93.1 Gastrostomy status; Z88.0 Allergy status to penicillin; Z91.040 Latex allergy status; Z79.01 Long term (current) use of anticoagulants; Z79.899 Other long term (current) drug therapy
CPT/HCPCS: 36415; 36416; 71045; 80048; 80053; 81003; 81015; 82010; 82330; 82550; 82553; 82803; 83036; 83605; 83735; 83880; 84100; 84443; 84484; 84703; 85025; 85610; 85730; 87040; 87086; 87635; 93005; 96365; 96366; 96376; J0692; J1450; J1644; J1815; J3480; J3490; U0003

== ENCOUNTER 2021-06-21 21:33 | Inpatient (IN) | payer MEDICARE, OTHER ==
[~2021-06-21 21:33] MED LIST changes: +Heparin 1,000 UNITS/ML VIAL ONE; -Iopamidol-370 76% 500 ML 1 ML ONE
[2021-06-21] MEDS ORDERED: cefTRIAXone\\ROCEPHIN 1 GM VIAL ONE (23:11)
[2021-06-22] MEDS ORDERED: Ondansetron PF 4 MG/2 ML Vial IVP PRN (00:26)
[2021-06-22] MEDS ORDERED: Dextrose 5% in Water 1,000 ML IV PRN (00:27)
[2021-06-22] MEDS ORDERED: Dextrose 50% Abboject 50 ML SYRINGE SLOW IVP PRN (00:27)
[2021-06-22] MEDS ORDERED: Vancomycin HCl 2.5 GM in Sodium Chloride 0.9% 500 ML IVPB SCH (03:30)
[2021-06-22 04:19] LABS: Anion Gap 17 mmol/L (10-20); BUN (Urea Nitrogen) 32 mg/dL (7.0-18.7); Calc. Creatinine Clearance 101 mL/min (70-130); Calcium 9.4 mg/dL (7.8-10.44); Carbon Dioxide 21 mmol/L (22-29); Chloride 106 mmol/L (98-107); Glucose 233 mg/dL (70-105); Potassium 4.7 mmol/L (3.5-5.1); Sodium 139 mmol/L (136-145)
[2021-06-22 04:40] LABS: Hemoglobin 9.9 g/dL (12.0-16.0); Mean Corpuscular HGB CONC 32.5 g/dL (32.0-36.0); Mean Corpuscular Hemoglobin 28.6 pg (27.0-31.0); Mean Corpuscular Volume 88.1 fL (78.0-98.0); Platelet Count 307 thou/uL (130-400); RBC Distribution Width 15.3 % (11.5-14.5); Red Blood Cell (RBC) Count 3.44 mill/uL (4.20-5.40); White Blood Cell (WBC) Count 20.6 thou/uL (4.8-10.8)
[2021-06-22 04:41] LABS: Band 1 % (5-11); Lymphocytes 10 % (21-51); MDiff Complete? YES; Monocytes 5 % (0-10); Neutrophil 82 % (42-75); Platelet Morphology Comment Appears Adequate; RBC Morphology Normal; Reactive Lymphocytes 2 % (0-10)
[2021-06-22] MEDS: Furosemide 40 MG/4 ML VIAL SLOW IVP SCH ×2 (05:46→14:54)
[2021-06-22 07:31] LABS: Bilirubin Negative (Negative); Blood, Urine Large (Negative); Glucose, Urine (Dipstick) Negative (Negative); Ketone, Urine Trace mg/dL (Negative); Protein, Urine (Dipstick) > or equal to 300 mg/dL (Neg-Trace)
[2021-06-22 07:37] LABS: Clarity Extra Turbid (Clear)
[2021-06-22 07:44] LABS: Leukocyte Trace (Negative); Nitrite Unable to Interpret (Negative); Urobilinogen UNABLE TO INTERPRET mg/dL (Less than 2)
[2021-06-22 07:48] LABS: Squamous Epithelial 0-3 HPF (0-3); WBC/HPF 0-3 HPF (0-3)
[2021-06-22 07:49] LABS: Bacteria/HPF 2+ HPF (None Seen)
[2021-06-22 07:50] LABS: Urine Culture Reflex Yes Yes
[2021-06-22 08:18] LABS: RBC/HPF Greater than 50 HPF (0-3)
[2021-06-22] MEDS ORDERED: Cefepime 1 GM in Sodium Chloride 0.9% 100 ML IVPB SCH (09:00)
[2021-06-22] MEDS: CEFEPIME HCL IN DEXTROSE 5 % 1 GM in Premix Bag 1 BAG IVPB SCH ×2 (09:55→21:47)
[2021-06-22 13:35] LABS: Fluid, Protein 5.5 g/dL (Not Available)
[2021-06-22 13:48] LABS: RBC Count-Automated (BF) 845 /cu.mm; WBC/Nucleated-Auto (BF) 3648 uL
[2021-06-22 14:17] LABS: BF Color Yellow; Body Fluid Source Pleural Fluid; Clarity Hazy (Clear); Tube # EDTA
[2021-06-22 14:29] LABS: BF Segmented Neutrophils 85 %; Cell Count Non Hematic 6 %; Lymphocytes 9 %
[2021-06-22] MEDS: HumaLOG 300 UNITS/3 ML VIAL SC PRN (16:19)
[2021-06-22] MEDS: Acetaminophen 325 MG TAB PO PRN (16:19)
[2021-06-22 18:42] LABS: Fluid, pH - Pleural Fld Less than 7.00 (7.60 - 7.66)
[2021-06-22 19:15] LABS: SARS-CoV-2 PCR by NAA Not Detected (NotDetected)
[2021-06-22] MEDS: NPH, Human Insulin Isophane 300 UNIT/3 ML VIAL SC SCH (21:47)
[2021-06-22] MEDS: Carvedilol 6.25 MG TAB PO SCH (21:47)
[2021-06-23 04:07] LABS: #Eosinphils 0.1 thou/uL (0.0-0.7); #Lymphocytes 1.9 thou/uL (1.20-3.40); #Neutrophils 11.4 thou/uL (1.40-6.50); %Basophils 0.1 % (0.0-1.0); %Eosinophils 0.5 % (0.0-10.0); %Lymphocytes 13.3 % (21.0-51.0); %Monocytes 7.1 % (0.0-10.0); Hemoglobin 10.2 g/dL (12.0-16.0); Mean Corpuscular HGB CONC 31.4 g/dL (32.0-36.0); Mean Corpuscular Hemoglobin 27.8 pg (27.0-31.0); Mean Corpuscular Volume 88.4 fL (78.0-98.0); Mean Platelet Volume 8.2 fL (7.4-10.4); Platelet Count 332 thou/uL (130-400); RBC Distribution Width 15.1 % (11.5-14.5); Red Blood Cell (RBC) Count 3.68 mill/uL (4.20-5.40); White Blood Cell (WBC) Count 14.4 thou/uL (4.8-10.8)
[2021-06-23 04:26] LABS: Anion Gap 15 mmol/L (10-20); BUN (Urea Nitrogen) 27 mg/dL (7.0-18.7); Calc. Creatinine Clearance 141 mL/min (70-130); Calcium 8.9 mg/dL (7.8-10.44); Carbon Dioxide 24 mmol/L (22-29); Chloride 103 mmol/L (98-107); Glucose 127 mg/dL (70-105); Potassium 3.9 mmol/L (3.5-5.1); Sodium 138 mmol/L (136-145)
[2021-06-23] MEDS: Furosemide 40 MG/4 ML VIAL SLOW IVP SCH ×2 (04:59→14:37)
[2021-06-23] MEDS: CEFEPIME HCL IN DEXTROSE 5 % 1 GM in Premix Bag 1 BAG IVPB SCH ×2 (08:51→21:41)
[2021-06-23] MEDS: Potassium Chloride 20 MEQ TAB PO SCH (08:52)
[2021-06-23] MEDS: Carvedilol 6.25 MG TAB PO SCH ×2 (08:52→20:41)
[2021-06-23] MEDS: Acetaminophen 325 MG TAB PO PRN (08:52)
[2021-06-23] MEDS: Magnesium Chloride 64 MG TAB PO SCH (08:52)
[2021-06-23] MEDS ORDERED: Enoxaparin Sodium 40 MG/0.4 ML SYRINGE SC SCH (09:00)
[2021-06-23] MEDS: HumaLOG 300 UNITS/3 ML VIAL SC PRN (11:34)
[2021-06-23] MEDS: NPH, Human Insulin Isophane 300 UNIT/3 ML VIAL SC SCH (21:09)
[2021-06-24 04:22] LABS: Anion Gap 13 mmol/L (10-20); BUN (Urea Nitrogen) 22 mg/dL (7.0-18.7); Calc. Creatinine Clearance 157 mL/min (70-130); Calcium 8.8 mg/dL (7.8-10.44); Carbon Dioxide 25 mmol/L (22-29); Chloride 100 mmol/L (98-107); Glucose 146 mg/dL (70-105); Potassium 3.5 mmol/L (3.5-5.1); Sodium 134 mmol/L (136-145); Vancomycin, Trough 10.3 ug/mL
[2021-06-24 04:33] LABS: #Basophils 0.1 thou/uL (0.0-0.2); #Eosinphils 0.1 thou/uL (0.0-0.7); #Lymphocytes 1.9 thou/uL (1.20-3.40); #Monocytes 0.9 thou/uL (0.11-0.59); #Neutrophils 12.2 thou/uL (1.40-6.50); %Basophils 0.1 % (0.0-1.0); %Eosinophils 0.8 % (0.0-10.0); %Lymphocytes 12.9 % (21.0-51.0); %Monocytes 6.2 % (0.0-10.0); Hemoglobin 10.6 g/dL (12.0-16.0); Mean Corpuscular HGB CONC 32.4 g/dL (32.0-36.0); Mean Corpuscular Hemoglobin 28.3 pg (27.0-31.0); Mean Corpuscular Volume 87.3 fL (78.0-98.0); Mean Platelet Volume 8.1 fL (7.4-10.4); Platelet Count 398 thou/uL (130-400); RBC Distribution Width 14.9 % (11.5-14.5); Red Blood Cell (RBC) Count 3.74 mill/uL (4.20-5.40); White Blood Cell (WBC) Count 15.2 thou/uL (4.8-10.8)
[2021-06-24] MEDS: Furosemide 40 MG/4 ML VIAL SLOW IVP SCH ×2 (09:21→15:39)
[2021-06-24] MEDS: Carvedilol 6.25 MG TAB PO SCH ×2 (09:22→21:43)
[2021-06-24] MEDS: CEFEPIME HCL IN DEXTROSE 5 % 1 GM in Premix Bag 1 BAG IVPB SCH ×2 (09:22→21:44)
[2021-06-24] MEDS: Potassium Chloride 20 MEQ TAB PO SCH (09:22)
[2021-06-24] MEDS: Magnesium Chloride 64 MG TAB PO SCH (09:22)
[2021-06-24] MEDS: HumaLOG 300 UNITS/3 ML VIAL SC PRN ×3 (11:08→21:44)
[2021-06-24] MEDS: Acetaminophen 325 MG TAB PO PRN (11:08)
[2021-06-24] MEDS: Vancomycin HCl 1.25 GM in Sodium Chloride 0.9% 250 ML 250 ML IVPB SCH (16:28)
[2021-06-24] MEDS: NPH, Human Insulin Isophane 300 UNIT/3 ML VIAL SC SCH (21:44)
[2021-06-25] MEDS: Vancomycin HCl 1.25 GM in Sodium Chloride 0.9% 250 ML 250 ML IVPB SCH ×2 (04:25→16:38)
[2021-06-25 05:01] LABS: #Eosinphils 0.2 thou/uL (0.0-0.7); #Lymphocytes 2.1 thou/uL (1.20-3.40); #Monocytes 1.3 thou/uL (0.11-0.59); #Neutrophils 14.2 thou/uL (1.40-6.50); %Basophils 0.1 % (0.0-1.0); %Eosinophils 1.1 % (0.0-10.0); %Lymphocytes 11.9 % (21.0-51.0); %Monocytes 7.2 % (0.0-10.0); %Neutrophils 79.7 % (42.0-75.0); Hemoglobin 11.1 g/dL (12.0-16.0); Mean Corpuscular HGB CONC 31.5 g/dL (32.0-36.0); Mean Corpuscular Hemoglobin 27.4 pg (27.0-31.0); Mean Corpuscular Volume 86.8 fL (78.0-98.0); Mean Platelet Volume 7.8 fL (7.4-10.4); Platelet Count 399 thou/uL (130-400); Red Blood Cell (RBC) Count 4.04 mill/uL (4.20-5.40); White Blood Cell (WBC) Count 17.9 thou/uL (4.8-10.8)
[2021-06-25 05:09] LABS: Anion Gap 15 mmol/L (10-20); BUN (Urea Nitrogen) 18 mg/dL (7.0-18.7); Calc. Creatinine Clearance 188 mL/min (70-130); Calcium 8.8 mg/dL (7.8-10.44); Carbon Dioxide 21 mmol/L (22-29); Chloride 102 mmol/L (98-107); Glucose 140 mg/dL (70-105); Potassium 4.4 mmol/L (3.5-5.1); Sodium 134 mmol/L (136-145)
[2021-06-25] MEDS: Furosemide 40 MG/4 ML VIAL SLOW IVP SCH ×2 (06:27→14:53)
[2021-06-25] MEDS: Carvedilol 6.25 MG TAB PO SCH ×2 (08:42→20:38)
[2021-06-25] MEDS: Potassium Chloride 20 MEQ TAB PO SCH (08:43)
[2021-06-25] MEDS: Magnesium Chloride 64 MG TAB PO SCH (08:51)
[2021-06-25] MEDS: CEFEPIME HCL IN DEXTROSE 5 % 1 GM in Premix Bag 1 BAG IVPB SCH ×2 (08:51→22:06)
[2021-06-25] MEDS: HumaLOG 300 UNITS/3 ML VIAL SC PRN ×2 (12:19→17:19)
[2021-06-25 14:57] LABS: Vancomycin, Trough 16.8 ug/mL
[2021-06-25] MEDS: NPH, Human Insulin Isophane 300 UNIT/3 ML VIAL SC SCH (20:38)
[2021-06-26] MEDS: Furosemide 40 MG/4 ML VIAL SLOW IVP SCH ×2 (05:07→14:33)
[2021-06-26] MEDS: Vancomycin HCl 1.25 GM in Sodium Chloride 0.9% 250 ML 250 ML IVPB SCH ×2 (05:08→16:18)
[2021-06-26] MEDS: HumaLOG 300 UNITS/3 ML VIAL SC PRN ×4 (05:50→21:36)
[2021-06-26] MEDS: Potassium Chloride 20 MEQ TAB PO SCH (08:10)
[2021-06-26] MEDS: Carvedilol 6.25 MG TAB PO SCH ×2 (08:10→20:09)
[2021-06-26] MEDS: CEFEPIME HCL IN DEXTROSE 5 % 1 GM in Premix Bag 1 BAG IVPB SCH ×2 (09:53→20:09)
[2021-06-26] MEDS: Magnesium Chloride 64 MG TAB PO SCH (13:24)
[2021-06-26] MEDS: Acetaminophen 325 MG TAB PO PRN (16:17)
[2021-06-26] MEDS ORDERED: Furosemide 100 MG/10 ML VIAL SLOW IVP SCH (18:15)
[2021-06-26] MEDS: NPH, Human Insulin Isophane 300 UNIT/3 ML VIAL SC SCH (21:35)
[2021-06-27 02:50] LABS: #Basophils 0.1 thou/uL (0.0-0.2); #Eosinphils 0.4 thou/uL (0.0-0.7); #Lymphocytes 2.3 thou/uL (1.20-3.40); #Monocytes 1.4 thou/uL (0.11-0.59); #Neutrophils 12.1 thou/uL (1.40-6.50); %Basophils 0.5 % (0.0-1.0); %Eosinophils 2.2 % (0.0-10.0); %Lymphocytes 14.2 % (21.0-51.0); %Monocytes 8.8 % (0.0-10.0); %Neutrophils 74.3 % (42.0-75.0); Hemoglobin 10.5 g/dL (12.0-16.0); Mean Corpuscular HGB CONC 32.4 g/dL (32.0-36.0); Mean Corpuscular Hemoglobin 28.2 pg (27.0-31.0); Mean Platelet Volume 7.6 fL (7.4-10.4); Platelet Count 401 thou/uL (130-400); RBC Distribution Width 14.9 % (11.5-14.5); Red Blood Cell (RBC) Count 3.73 mill/uL (4.20-5.40); White Blood Cell (WBC) Count 16.2 thou/uL (4.8-10.8)
[2021-06-27 03:05] LABS: Vancomycin, Trough 17.9 ug/mL
[2021-06-27] MEDS: Vancomycin HCl 1.25 GM in Sodium Chloride 0.9% 250 ML 250 ML IVPB SCH ×3 (03:43→16:17)
[2021-06-27] MEDS: Furosemide 100 MG/10 ML VIAL SLOW IVP SCH ×2 (06:20→14:48)
[2021-06-27] MEDS: Carvedilol 6.25 MG TAB PO SCH ×2 (08:02→20:49)
[2021-06-27] MEDS: Cefdinir 300 MG CAP PO SCH ×2 (08:02→20:49)
[2021-06-27] MEDS: Potassium Chloride 20 MEQ TAB PO SCH (08:02)
[2021-06-27] MEDS: Magnesium Chloride 64 MG TAB PO SCH (09:00)
[2021-06-27 10:13] LABS: Fluid, pH - Pleural Fld Less than 7.00 (7.60 - 7.66)
[2021-06-27 11:26] LABS: Pleural Fluid, Protein 5.4 g/dL
[2021-06-27] MEDS: traMADol HCl 50 MG TAB PO PRN (11:44)
[2021-06-27] MEDS: HumaLOG 300 UNITS/3 ML VIAL SC PRN ×3 (12:20→20:54)
[2021-06-27 18:51] LABS: Anion Gap 16 mmol/L (10-20); BUN (Urea Nitrogen) 26 mg/dL (7.0-18.7); Calc. Creatinine Clearance 116 mL/min (70-130); Calcium 9.4 mg/dL (7.8-10.44); Carbon Dioxide 25 mmol/L (22-29); Chloride 99 mmol/L (98-107); Glucose 240 mg/dL (70-105); Sodium 136 mmol/L (136-145)
[2021-06-27] MEDS: NPH, Human Insulin Isophane 300 UNIT/3 ML VIAL SC SCH (20:52)
[2021-06-28] MEDS: Vancomycin HCl 1.25 GM in Sodium Chloride 0.9% 250 ML 250 ML IVPB SCH (03:13)
[2021-06-28 04:43] LABS: #Eosinphils 0.4 thou/uL (0.0-0.7); #Lymphocytes 2.5 thou/uL (1.20-3.40); #Monocytes 1.6 thou/uL (0.11-0.59); #Neutrophils 11.2 thou/uL (1.40-6.50); %Basophils 0.3 % (0.0-1.0); %Eosinophils 2.6 % (0.0-10.0); %Monocytes 9.9 % (0.0-10.0); %Neutrophils 71.2 % (42.0-75.0); Mean Corpuscular Hemoglobin 28.6 pg (27.0-31.0); Mean Corpuscular Volume 86.8 fL (78.0-98.0); Mean Platelet Volume 7.7 fL (7.4-10.4); Platelet Count 379 thou/uL (130-400); White Blood Cell (WBC) Count 15.7 thou/uL (4.8-10.8)
[2021-06-28 05:02] LABS: Anion Gap 14 mmol/L (10-20); BUN (Urea Nitrogen) 28 mg/dL (7.0-18.7); Calc. Creatinine Clearance 133 mL/min (70-130); Calcium 9.2 mg/dL (7.8-10.44); Carbon Dioxide 26 mmol/L (22-29); Chloride 99 mmol/L (98-107); Glucose 173 mg/dL (70-105); Magnesium 1.8 mg/dL (1.6-2.6); Potassium 3.8 mmol/L (3.5-5.1); Sodium 135 mmol/L (136-145)
[2021-06-28] MEDS: Furosemide 100 MG/10 ML VIAL SLOW IVP SCH ×2 (05:44→16:06)
[2021-06-28] MEDS: HumaLOG 300 UNITS/3 ML VIAL SC PRN ×3 (05:45→18:23)
[2021-06-28] MEDS ORDERED: Magnesium 2 GM/50 ML 2 GM in Premix Bag 1 BAG IVPB SCH (08:15)
[2021-06-28] MEDS: Magnesium Chloride 64 MG TAB PO SCH (09:56)
[2021-06-28] MEDS: Potassium Chloride 20 MEQ TAB PO SCH (09:57)
[2021-06-28] MEDS: Carvedilol 6.25 MG TAB PO SCH ×2 (09:57→21:05)
[2021-06-28] MEDS: Cefdinir 300 MG CAP PO SCH ×2 (09:57→21:05)
[2021-06-28] MEDS: traMADol HCl 50 MG TAB PO PRN ×2 (10:05→18:38)
[2021-06-28 14:41] LABS: Vancomycin, Trough 24.7 ug/mL
[2021-06-28] MEDS: NPH, Human Insulin Isophane 300 UNIT/3 ML VIAL SC SCH (21:04)
[2021-06-29 02:15] LABS: #Eosinphils 0.4 thou/uL (0.0-0.7); #Lymphocytes 2.4 thou/uL (1.20-3.40); #Monocytes 1.4 thou/uL (0.11-0.59); #Neutrophils 11.2 thou/uL (1.40-6.50); %Basophils 0.1 % (0.0-1.0); %Eosinophils 2.3 % (0.0-10.0); %Lymphocytes 15.9 % (21.0-51.0); %Monocytes 8.8 % (0.0-10.0); %Neutrophils 72.8 % (42.0-75.0); Hemoglobin 10.3 g/dL (12.0-16.0); Mean Corpuscular HGB CONC 31.6 g/dL (32.0-36.0); Mean Corpuscular Hemoglobin 27.4 pg (27.0-31.0); Mean Corpuscular Volume 86.7 fL (78.0-98.0); Mean Platelet Volume 7.6 fL (7.4-10.4); Platelet Count 378 thou/uL (130-400); RBC Distribution Width 14.9 % (11.5-14.5); Red Blood Cell (RBC) Count 3.75 mill/uL (4.20-5.40); White Blood Cell (WBC) Count 15.3 thou/uL (4.8-10.8)
[2021-06-29 02:27] LABS: Vancomycin, Random 13.3 ug/mL (See Comment)
[2021-06-29 02:32] LABS: Anion Gap 16 mmol/L (10-20); BUN (Urea Nitrogen) 30 mg/dL (7.0-18.7); Calc. Creatinine Clearance 133 mL/min (70-130); Calcium 9.2 mg/dL (7.8-10.44); Carbon Dioxide 25 mmol/L (22-29); Chloride 97 mmol/L (98-107); Glucose 200 mg/dL (70-105); Magnesium 2.2 mg/dL (1.6-2.6); Potassium 3.7 mmol/L (3.5-5.1); Sodium 134 mmol/L (136-145)
[2021-06-29] MEDS: Vancomycin 1 GM in Premix Bag 1 BAG IVPB SCH ×2 (04:00→16:30)
[2021-06-29] MEDS: Furosemide 100 MG/10 ML VIAL SLOW IVP SCH ×2 (05:41→14:20)
[2021-06-29] MEDS: HumaLOG 300 UNITS/3 ML VIAL SC PRN ×4 (05:43→20:42)
[2021-06-29] MEDS: Magnesium Chloride 64 MG TAB PO SCH (09:50)
[2021-06-29] MEDS: Potassium Chloride 20 MEQ TAB PO SCH (09:50)
[2021-06-29] MEDS: Carvedilol 6.25 MG TAB PO SCH ×2 (09:50→20:37)
[2021-06-29] MEDS: Cefdinir 300 MG CAP PO SCH ×2 (09:51→20:37)
[2021-06-29] MEDS: NPH, Human Insulin Isophane 300 UNIT/3 ML VIAL SC SCH (20:40)
[2021-06-29] MEDS: traMADol HCl 50 MG TAB PO PRN (21:42)
[2021-06-30] MEDS: Vancomycin 1 GM in Premix Bag 1 BAG IVPB SCH (03:27)
[2021-06-30 05:16] LABS: Anion Gap 12 mmol/L (10-20); BUN (Urea Nitrogen) 34 mg/dL (7.0-18.7); Calc. Creatinine Clearance 110 mL/min (70-130); Calcium 9.1 mg/dL (7.8-10.44); Carbon Dioxide 31 mmol/L (22-29); Chloride 94 mmol/L (98-107); Glucose 225 mg/dL (70-105); Magnesium 1.9 mg/dL (1.6-2.6); Potassium 3.8 mmol/L (3.5-5.1); Sodium 133 mmol/L (136-145)
[2021-06-30] MEDS: HumaLOG 300 UNITS/3 ML VIAL SC PRN ×3 (05:32→18:08)
[2021-06-30] MEDS: Cefdinir 300 MG CAP PO SCH ×2 (08:54→21:24)
[2021-06-30] MEDS: Potassium Chloride 20 MEQ TAB PO SCH (08:54)
[2021-06-30] MEDS: Carvedilol 6.25 MG TAB PO SCH ×2 (08:54→21:24)
[2021-06-30] MEDS: Magnesium Chloride 64 MG TAB PO SCH (08:54)
[2021-06-30 11:40] LABS: SARS-CoV-2 PCR by NAA Not Detected (NotDetected)
[2021-06-30] MEDS: NPH, Human Insulin Isophane 300 UNIT/3 ML VIAL SC SCH (21:23)
[2021-06-30] MEDS: traMADol HCl 50 MG TAB PO PRN (23:50)
[2021-07-01 05:33] LABS: Anion Gap 10 mmol/L (10-20); BUN (Urea Nitrogen) 29 mg/dL (7.0-18.7); Calc. Creatinine Clearance 116 mL/min (70-130); Calcium 9.3 mg/dL (7.8-10.44); Carbon Dioxide 33 mmol/L (22-29); Chloride 97 mmol/L (98-107); Glucose 219 mg/dL (70-105); Magnesium 2.1 mg/dL (1.6-2.6); Potassium 4.4 mmol/L (3.5-5.1); Sodium 136 mmol/L (136-145)
[2021-07-01] MEDS: HumaLOG 300 UNITS/3 ML VIAL SC PRN ×4 (06:46→21:53)
[2021-07-01] MEDS: Magnesium Chloride 64 MG TAB PO SCH (09:39)
[2021-07-01] MEDS: Potassium Chloride 20 MEQ TAB PO SCH (09:39)
[2021-07-01] MEDS: Carvedilol 6.25 MG TAB PO SCH ×2 (09:40→21:54)
[2021-07-01] MEDS: Cefdinir 300 MG CAP PO SCH ×2 (09:42→21:53)
[2021-07-01] MEDS: traMADol HCl 50 MG TAB PO PRN (16:48)
[2021-07-01] MEDS: NPH, Human Insulin Isophane 300 UNIT/3 ML VIAL SC SCH (21:53)
[2021-07-02 05:23] LABS: #Eosinphils 0.4 thou/uL (0.0-0.7); #Lymphocytes 2.4 thou/uL (1.20-3.40); #Monocytes 1.1 thou/uL (0.11-0.59); #Neutrophils 11.2 thou/uL (1.40-6.50); %Basophils 0.3 % (0.0-1.0); %Eosinophils 2.3 % (0.0-10.0); %Lymphocytes 15.8 % (21.0-51.0); %Monocytes 7.1 % (0.0-10.0); %Neutrophils 74.5 % (42.0-75.0); Hemoglobin 9.4 g/dL (12.0-16.0); Mean Corpuscular HGB CONC 31.3 g/dL (32.0-36.0); Mean Corpuscular Hemoglobin 27.4 pg (27.0-31.0); Mean Corpuscular Volume 87.7 fL (78.0-98.0); Mean Platelet Volume 7.6 fL (7.4-10.4); Platelet Count 345 thou/uL (130-400); RBC Distribution Width 14.8 % (11.5-14.5); Red Blood Cell (RBC) Count 3.42 mill/uL (4.20-5.40)
[2021-07-02 06:26] LABS: Anion Gap 11 mmol/L (10-20); BUN (Urea Nitrogen) 24 mg/dL (7.0-18.7); Calc. Creatinine Clearance 137 mL/min (70-130); Calcium 8.9 mg/dL (7.8-10.44); Carbon Dioxide 28 mmol/L (22-29); Chloride 103 mmol/L (98-107); Glucose 149 mg/dL (70-105); Magnesium 2.3 mg/dL (1.6-2.6); Potassium 3.8 mmol/L (3.5-5.1); Sodium 138 mmol/L (136-145)
[2021-07-02] MEDS: Potassium Chloride 20 MEQ TAB PO SCH (09:54)
[2021-07-02] MEDS: Carvedilol 6.25 MG TAB PO SCH ×2 (09:54→20:06)
[2021-07-02] MEDS: Cefdinir 300 MG CAP PO SCH ×2 (09:54→20:07)
[2021-07-02] MEDS: Magnesium Chloride 64 MG TAB PO SCH (09:54)
[2021-07-02] MEDS: HumaLOG 300 UNITS/3 ML VIAL SC PRN (11:34)
[2021-07-02] MEDS ORDERED: Milk Of Magnesia 30 ML UDCUP PO PRN (14:46)
[2021-07-02] MEDS ORDERED: Bisacodyl 10 MG SUPP PR SCH (15:00)
[2021-07-02 16:49] LABS: Vancomycin, Trough 31.1 ug/mL
[2021-07-02] MEDS: NPH, Human Insulin Isophane 300 UNIT/3 ML VIAL SC SCH (21:05)
[2021-07-03] MEDS: Vancomycin HCl 1.25 GM in Sodium Chloride 0.9% 250 ML 250 ML IVPB SCH ×2 (00:01→10:11)
[2021-07-03 04:59] LABS: Anion Gap 13 mmol/L (10-20); BUN (Urea Nitrogen) 20 mg/dL (7.0-18.7); Calc. Creatinine Clearance 113 mL/min (70-130); Calcium 8.9 mg/dL (7.8-10.44); Carbon Dioxide 28 mmol/L (22-29); Chloride 103 mmol/L (98-107); Glucose 124 mg/dL (70-105); Potassium 3.9 mmol/L (3.5-5.1); Sodium 140 mmol/L (136-145)
[2021-07-03] MEDS ORDERED: Torsemide 20 MG TAB PO SCH (09:00)
[2021-07-03] MEDS: Cefdinir 300 MG CAP PO SCH (10:11)
[2021-07-03] MEDS: Magnesium Chloride 64 MG TAB PO SCH (10:11)
[2021-07-03] MEDS: Carvedilol 6.25 MG TAB PO SCH ×2 (10:11→21:00)
[2021-07-03] MEDS: Potassium Chloride 20 MEQ TAB PO SCH (10:12)
[2021-07-03] MEDS: HumaLOG 300 UNITS/3 ML VIAL SC PRN ×2 (11:50→17:46)
[2021-07-03] MEDS: CEFAZOLIN 2 GM in Premix Bag 1 BAG IVPB SCH ×2 (15:19→21:01)
[2021-07-03] MEDS ORDERED: Saccharomyces boulardii 250 MG CAP PO SCH (21:00)
[2021-07-04 05:04] LABS: Anion Gap 15 mmol/L (10-20); BUN (Urea Nitrogen) 20 mg/dL (7.0-18.7); Calc. Creatinine Clearance 83 mL/min (70-130); Calcium 9.3 mg/dL (7.8-10.44); Carbon Dioxide 29 mmol/L (22-29); Chloride 100 mmol/L (98-107); Glucose 161 mg/dL (70-105); Potassium 4.1 mmol/L (3.5-5.1); Sodium 140 mmol/L (136-145)
[2021-07-04] MEDS: CEFAZOLIN 2 GM in Premix Bag 1 BAG IVPB SCH ×3 (06:27→21:11)
[2021-07-04] MEDS: Carvedilol 6.25 MG TAB PO SCH (06:56)
[2021-07-04] MEDS ORDERED: Levofloxacin 500 mg/D5W 100 ml Premix Bag ONE (07:48)
[2021-07-04] MEDS ORDERED: Ketamine 50 MG/ML (10ML VIAL) ONE (08:51)
[2021-07-04] MEDS ORDERED: Fentanyl 100 MCG/2 ML VIAL ONE (08:51)
[2021-07-04] MEDS ORDERED: Midazolam HCl 2 mg/2 ml Vial ONE ×2 (08:52→10:08)
[2021-07-04] MEDS ORDERED: Promethazine HCl 25 MG/ML VIAL IVPB PRN (09:12)
[2021-07-04] MEDS ORDERED: Promethazine HCl 25 MG/ML VIAL IM PRN (09:12)
[2021-07-04] MEDS ORDERED: Ondansetron HCl/PF 4 MG/2 ML Vial IVP PRN (09:12)
[2021-07-04] MEDS ORDERED: Rocuronium Bromide 10 MG/ML (10ML VIAL) ONE ×2 (09:15→14:00)
[2021-07-04] MEDS ORDERED: Ondansetron PF 4 MG/2 ML Vial ONE (09:15)
[2021-07-04] MEDS ORDERED: Lidocaine 2% PF 5 ML VIAL ONE (09:15)
[2021-07-04] MEDS ORDERED: Vecuronium 10 MG VIAL ONE (09:15)
[2021-07-04] MEDS ORDERED: Dexamethasone 4 mg/ml Vial ONE (09:51)
[2021-07-04] MEDS ORDERED: Norepinephrine 4 MG/4 ML VIAL ONE ×2 (09:55→14:06)
[2021-07-04] MEDS ORDERED: Calcium Chloride 1 GM/10 ML Abboject SYRINGE ONE (09:55)
[2021-07-04] MEDS ORDERED: Sodium Bicarb 50 MEQ/50 ML Abboject 8.4% SYRINGE ONE ×2 (09:55→11:27)
[2021-07-04] MEDS ORDERED: EPINEPHrine 1 MG/10 ML Abboject SYRINGE ONE ×2 (09:55→12:32)
[2021-07-04] MEDS ORDERED: SUGAMMADEX SODIUM 200 MG/2 ML VIAL ONE (10:05)
[2021-07-04] MEDS ORDERED: Propofol 1,000 MG/100 ML VIAL IV ONE (10:16)
[2021-07-04] MEDS ORDERED: EPINEPHrine 1 MG/ML AMP ONE ×2 (11:34→12:32)
[2021-07-04] MEDS ORDERED: Bupivacaine PF 0.5% 30 ML VIAL ONE (11:34)
[2021-07-04] MEDS: Magnesium Chloride 64 MG TAB PO SCH (11:38)
[2021-07-04] MEDS ORDERED: DOBUTamine 500 mg/250 ml 250 ML ONE ×2 (11:47→14:47)
[2021-07-04] MEDS ORDERED: Insulin Regular 300 UNITS/3 ML VIAL ONE (12:10)
[2021-07-04] MEDS ORDERED: EPINEPHrine 4 MG in Dextrose 5% in Water 250 ML IV SCH (12:30)
[2021-07-04 13:06] LABS: Actual Bicarbonate (HCO3a) 22.4 mEq/L (22-28); Base Excess (BEa) -1.6 mEq/L (-2.0 to +3.0); CO2 Tension 34.7 mmHg (35.0-45.0); Calcium, Ionized (arterial) 1.28 mmol/L (1.12-1.30); Carboxyhemoglobin (COHb) 0.3 gm% (0.0-3.0); Hemoglobin (Hb) 8.8 g/dL (12.0-16.0); Potassium - ABG Lab 6.01 mmol/L (3.70-5.30); pH, Arterial 7.43 (7.35-7.45)
[2021-07-04 13:07] LABS: Puncture Site ALINE
[2021-07-04 13:08] LABS: ALV-art Gradient 171.025 mmHg (0-20)
[2021-07-04] MEDS ORDERED: Sodium Chloride 0.9% 10 ML ONE (13:51)
[2021-07-04 15:35] LABS: Actual Bicarbonate (HCO3a) 21.7 mEq/L (22-28); Base Excess (BEa) -1.4 mEq/L (-2.0 to +3.0); CO2 Tension 30.2 mmHg (35.0-45.0); Calcium, Ionized (arterial) 1.14 mmol/L (1.12-1.30); Carboxyhemoglobin (COHb) 0.2 gm% (0.0-3.0); Hemoglobin (Hb) 8.4 g/dL (12.0-16.0); O2 Tension (PaO2), arterial 96.2 mmHg (80.0-100.0); Potassium - ABG Lab 3.91 mmol/L (3.70-5.30); pH, Arterial 7.48 (7.35-7.45)
[2021-07-04 15:37] LABS: Puncture Site Arterial Line
[2021-07-04] MEDS ORDERED: Fentanyl CADD 100 ML ONE (15:42)
[2021-07-04] MEDS ORDERED: fentaNYL Citrate/PF 2,000 MCG in Sodium Chloride 0.9% 60 ML IV PRN (15:52)
[2021-07-04] MEDS ORDERED: Norepinephrine 8 MG/0.9% NS 250 ML IVPB PRN (15:52)
[2021-07-04] MEDS: HUMULIN R 100 UNITS in Sodium Chloride 0.9% 100 ML IVPB SCH ×2 (16:11→21:00)
[2021-07-04] MEDS ORDERED: Fentanyl CADD 100 ML IV SCH (16:15)
[2021-07-04 16:58] LABS: Hemoglobin 7.9 g/dL (12.0-16.0); Mean Corpuscular HGB CONC 32.1 g/dL (32.0-36.0); Mean Corpuscular Hemoglobin 27.8 pg (27.0-31.0); Mean Corpuscular Volume 86.5 fL (78.0-98.0); Mean Platelet Volume 7.2 fL (7.4-10.4); Platelet Count 198 thou/uL (130-400); RBC Distribution Width 14.7 % (11.5-14.5); Red Blood Cell (RBC) Count 2.83 mill/uL (4.20-5.40); White Blood Cell (WBC) Count 31.9 thou/uL (4.8-10.8)
[2021-07-04 17:25] LABS: Band 22 % (5-11); Lymphocytes 2 % (21-51); MDiff Complete? YES; Monocytes 3 % (0-10); Neutrophil 72 % (42-75); Ovalocytes SLIGHT = 2-5 cells (100X) (0-1/hpf); Platelet Morphology Comment Appears Adequate; Polychromasia SLIGHT = 2-3 cells (100X) (0-2/hpf)
[2021-07-04 17:29] LABS: ALT (SGPT) 216 U/L (8-55); AST (SGOT) 541 U/L (5-34); Albumin 2.5 g/dL (3.5-5.0); Alkaline Phosphatase 205 U/L (40-110); Anion Gap 14 mmol/L (10-20); BUN (Urea Nitrogen) 27 mg/dL (7.0-18.7); Bilirubin, Total 1.2 mg/dL (0.2-1.2); Calc. Creatinine Clearance 62 mL/min (70-130); Calcium 9.1 mg/dL (7.8-10.44); Carbon Dioxide 25 mmol/L (22-29); Chloride 102 mmol/L (98-107); Globulin 3.7 g/dL (2.4-3.5); Glucose 297 mg/dL (70-105); Magnesium 1.7 mg/dL (1.6-2.6); Phosphorus 5.4 mg/dL (2.3-4.7); Protein, Total 6.2 g/dL (6.0-8.3); Sodium 137 mmol/L (136-145)
[2021-07-04] MEDS ORDERED: Magnesium 2 GM/50 ML 2 GM in Premix Bag 1 BAG IVPB SCH (20:00)
[2021-07-04] MEDS: Famotidine/PF 20 mg/2ml Vial SLOW IVP SCH (20:35)
[2021-07-04] MEDS: DOBUTamine 500 mg/250 ml 250 ML IVPB SCH (20:35)
[2021-07-04 21:59] LABS: Hemoglobin 8.1 g/dL (12.0-16.0); Platelet Count 191 thou/uL (130-400)
[2021-07-04 22:18] LABS: Anion Gap 15 mmol/L (10-20); BUN (Urea Nitrogen) 28 mg/dL (7.0-18.7); Calc. Creatinine Clearance 59 mL/min (70-130); Calcium 9.5 mg/dL (7.8-10.44); Carbon Dioxide 27 mmol/L (22-29); Chloride 102 mmol/L (98-107); Glucose 152 mg/dL (70-105); Sodium 140 mmol/L (136-145)
[2021-07-04] MEDS: Sodium Chloride 0.9% 1,000 ML IV SCH (23:27)
[2021-07-05] MEDS: DOBUTamine 500 mg/250 ml 250 ML IVPB SCH ×2 (02:40→09:15)
[2021-07-05 05:12] LABS: #Lymphocytes 1.8 thou/uL (1.20-3.40); #Monocytes 0.5 thou/uL (0.11-0.59); #Neutrophils 14.4 thou/uL (1.40-6.50); %Basophils 0.1 % (0.0-1.0); %Eosinophils 0.2 % (0.0-10.0); %Lymphocytes 10.9 % (21.0-51.0); %Monocytes 3.2 % (0.0-10.0); %Neutrophils 85.6 % (42.0-75.0); Hemoglobin 8.1 g/dL (12.0-16.0); Mean Corpuscular HGB CONC 32.4 g/dL (32.0-36.0); Mean Corpuscular Hemoglobin 27.9 pg (27.0-31.0); Mean Corpuscular Volume 85.9 fL (78.0-98.0); Mean Platelet Volume 7.6 fL (7.4-10.4); Platelet Count 215 thou/uL (130-400); RBC Distribution Width 14.7 % (11.5-14.5); Red Blood Cell (RBC) Count 2.89 mill/uL (4.20-5.40); White Blood Cell (WBC) Count 16.8 thou/uL (4.8-10.8)
[2021-07-05] MEDS: CEFAZOLIN 2 GM in Premix Bag 1 BAG IVPB SCH ×3 (05:25→21:48)
[2021-07-05 05:30] LABS: ALT (SGPT) 122 U/L (8-55); AST (SGOT) 239 U/L (5-34); Albumin 2.8 g/dL (3.5-5.0); Alkaline Phosphatase 186 U/L (40-110); Anion Gap 12 mmol/L (10-20); BUN (Urea Nitrogen) 30 mg/dL (7.0-18.7); Bilirubin, Direct 0.4 mg/dL (0.1-0.3); Bilirubin, Total 0.7 mg/dL (0.2-1.2); Calc. Creatinine Clearance 57 mL/min (70-130); Calcium 9.3 mg/dL (7.8-10.44); Carbon Dioxide 28 mmol/L (22-29); Chloride 102 mmol/L (98-107); Glucose 80 mg/dL (70-105); Magnesium 2.2 mg/dL (1.6-2.6); Potassium 3.9 mmol/L (3.5-5.1); Protein, Total 6.9 g/dL (6.0-8.3); Sodium 138 mmol/L (136-145)
[2021-07-05 05:38] LABS: Phosphorus 3.2 mg/dL (2.3-4.7)
[2021-07-05] MEDS: Famotidine/PF 20 mg/2ml Vial SLOW IVP SCH ×2 (07:10→20:14)
[2021-07-05] MEDS: Sodium Chloride 0.9% 1,000 ML IV SCH (07:11)
[2021-07-05 07:35] LABS: Actual Bicarbonate (HCO3a) 26.9 mEq/L (22-28); CO2 Tension 29.2 mmHg (35.0-45.0); Calcium, Ionized (arterial) 1.11 mmol/L (1.12-1.30); Hemoglobin (Hb) 8.3 g/dL (12.0-16.0); O2 Tension (PaO2), arterial 102.3 mmHg (80.0-100.0); Potassium - ABG Lab 4.43 mmol/L (3.70-5.30)
[2021-07-05 07:39] LABS: Puncture Site RRA; pH, Arterial 7.58 (7.35-7.45)
[2021-07-05] MEDS ORDERED: DC Sedation Protocol FS ONE (10:40)
[2021-07-05] MEDS ORDERED: Furosemide 40 MG/4 ML VIAL ONE (13:06)
[2021-07-05] MEDS ORDERED: Furosemide 40 MG/4 ML VIAL SLOW IVP SCH (13:30)
[2021-07-05] MEDS ORDERED: Sodium Chloride 0.9% 1,000 ML IV SCH (13:30)
[2021-07-06] MEDS: Morphine 2 MG/ML VIAL SLOW IVP PRN ×3 (00:12→12:35)
[2021-07-06] MEDS: DOBUTamine 500 mg/250 ml 250 ML IVPB SCH ×2 (00:31→08:19)
[2021-07-06 04:40] LABS: #Eosinphils 0.2 thou/uL (0.0-0.7); #Lymphocytes 2.1 thou/uL (1.20-3.40); #Monocytes 0.8 thou/uL (0.11-0.59); #Neutrophils 13.8 thou/uL (1.40-6.50); %Basophils 0.2 % (0.0-1.0); %Lymphocytes 12.3 % (21.0-51.0); %Neutrophils 81.6 % (42.0-75.0); Hemoglobin 7.1 g/dL (12.0-16.0); Mean Corpuscular HGB CONC 32.1 g/dL (32.0-36.0); Mean Corpuscular Hemoglobin 27.9 pg (27.0-31.0); Mean Corpuscular Volume 86.8 fL (78.0-98.0); Mean Platelet Volume 7.6 fL (7.4-10.4); Platelet Count 231 thou/uL (130-400); Red Blood Cell (RBC) Count 2.56 mill/uL (4.20-5.40); White Blood Cell (WBC) Count 16.9 thou/uL (4.8-10.8)
[2021-07-06] MEDS: CEFAZOLIN 2 GM in Premix Bag 1 BAG IVPB SCH ×3 (05:23→21:07)
[2021-07-06 05:24] LABS: Anion Gap 13 mmol/L (10-20); BUN (Urea Nitrogen) 28 mg/dL (7.0-18.7); Calc. Creatinine Clearance 62 mL/min (70-130); Calcium 8.5 mg/dL (7.8-10.44); Carbon Dioxide 29 mmol/L (22-29); Chloride 99 mmol/L (98-107); Glucose 97 mg/dL (70-105); Phosphorus 4.2 mg/dL (2.3-4.7); Potassium 3.8 mmol/L (3.5-5.1); Sodium 137 mmol/L (136-145)
[2021-07-06] MEDS: HYDROcodone/Acetaminophen 5/325 mg Tablet PO PRN ×2 (10:47→15:27)
[2021-07-06] MEDS: HumaLOG 300 UNITS/3 ML VIAL SC PRN ×2 (11:23→20:01)
[2021-07-06] MEDS ORDERED: Furosemide 40 MG/4 ML VIAL SLOW IVP SCH (12:30)
[2021-07-06] MEDS ORDERED: Famotidine/PF 20 mg/2ml Vial SLOW IVP SCH (21:00)
[2021-07-07] MEDS: HYDROcodone/Acetaminophen 5/325 mg Tablet PO PRN ×4 (00:29→22:04)
[2021-07-07] MEDS: DOBUTamine 500 mg/250 ml 250 ML IVPB SCH ×2 (02:01→17:56)
[2021-07-07 04:49] LABS: #Eosinphils 0.4 thou/uL (0.0-0.7); #Lymphocytes 2.2 thou/uL (1.20-3.40); #Monocytes 1.1 thou/uL (0.11-0.59); #Neutrophils 13.6 thou/uL (1.40-6.50); %Eosinophils 2.2 % (0.0-10.0); %Monocytes 6.2 % (0.0-10.0); %Neutrophils 78.6 % (42.0-75.0); Mean Corpuscular HGB CONC 31.8 g/dL (32.0-36.0); Mean Corpuscular Hemoglobin 27.7 pg (27.0-31.0); Mean Corpuscular Volume 87.1 fL (78.0-98.0); Mean Platelet Volume 7.7 fL (7.4-10.4); Platelet Count 251 thou/uL (130-400); RBC Distribution Width 14.9 % (11.5-14.5); Red Blood Cell (RBC) Count 2.52 mill/uL (4.20-5.40); White Blood Cell (WBC) Count 17.2 thou/uL (4.8-10.8)
[2021-07-07 05:06] LABS: Anion Gap 11 mmol/L (10-20); BUN (Urea Nitrogen) 24 mg/dL (7.0-18.7); Calc. Creatinine Clearance 70 mL/min (70-130); Calcium 8.6 mg/dL (7.8-10.44); Carbon Dioxide 31 mmol/L (22-29); Chloride 97 mmol/L (98-107); Glucose 161 mg/dL (70-105); Potassium 3.6 mmol/L (3.5-5.1); Sodium 135 mmol/L (136-145)
[2021-07-07] MEDS: CEFAZOLIN 2 GM in Premix Bag 1 BAG IVPB SCH ×3 (05:25→22:04)
[2021-07-07] MEDS: HumaLOG 300 UNITS/3 ML VIAL SC PRN ×2 (10:20→16:37)
[2021-07-07 23:02] LABS: SARS-CoV-2 PCR by NAA Not Detected (NotDetected)
[2021-07-08 04:41] LABS: #Basophils 0.1 thou/uL (0.0-0.2); #Eosinphils 0.7 thou/uL (0.0-0.7); #Lymphocytes 3.1 thou/uL (1.20-3.40); #Neutrophils 12.2 thou/uL (1.40-6.50); %Basophils 0.4 % (0.0-1.0); %Eosinophils 4.2 % (0.0-10.0); %Lymphocytes 18.1 % (21.0-51.0); %Monocytes 5.7 % (0.0-10.0); %Neutrophils 71.5 % (42.0-75.0); Hemoglobin 7.1 g/dL (12.0-16.0); Mean Corpuscular HGB CONC 32.4 g/dL (32.0-36.0); Mean Corpuscular Hemoglobin 28.4 pg (27.0-31.0); Mean Corpuscular Volume 87.7 fL (78.0-98.0); Mean Platelet Volume 7.7 fL (7.4-10.4); Platelet Count 303 thou/uL (130-400); Red Blood Cell (RBC) Count 2.49 mill/uL (4.20-5.40)
[2021-07-08 05:00] LABS: Anion Gap 13 mmol/L (10-20); BUN (Urea Nitrogen) 17 mg/dL (7.0-18.7); Calc. Creatinine Clearance 76 mL/min (70-130); Calcium 8.6 mg/dL (7.8-10.44); Carbon Dioxide 29 mmol/L (22-29); Chloride 100 mmol/L (98-107); Glucose 112 mg/dL (70-105); Potassium 3.9 mmol/L (3.5-5.1); Sodium 138 mmol/L (136-145)
[2021-07-08] MEDS: CEFAZOLIN 2 GM in Premix Bag 1 BAG IVPB SCH ×3 (05:28→21:41)
[2021-07-08] MEDS: HYDROcodone/Acetaminophen 5/325 mg Tablet PO PRN (06:43)
[2021-07-08] MEDS: Morphine 2 MG/ML VIAL SLOW IVP PRN ×2 (08:52→21:39)
[2021-07-08] MEDS: DOBUTamine 500 mg/250 ml 250 ML IVPB SCH (19:49)
[2021-07-09] MEDS: HYDROcodone/Acetaminophen 5/325 mg Tablet PO PRN (01:58)
[2021-07-09 04:58] LABS: #Basophils 0.1 thou/uL (0.0-0.2); #Eosinphils 0.9 thou/uL (0.0-0.7); #Lymphocytes 2.8 thou/uL (1.20-3.40); #Neutrophils 10.7 thou/uL (1.40-6.50); %Basophils 0.6 % (0.0-1.0); %Eosinophils 5.8 % (0.0-10.0); %Lymphocytes 18.3 % (21.0-51.0); %Monocytes 6.2 % (0.0-10.0); Mean Corpuscular HGB CONC 31.6 g/dL (32.0-36.0); Mean Corpuscular Hemoglobin 27.9 pg (27.0-31.0); Mean Corpuscular Volume 88.3 fL (78.0-98.0); Mean Platelet Volume 7.2 fL (7.4-10.4); Platelet Count 334 thou/uL (130-400); RBC Distribution Width 15.1 % (11.5-14.5); Red Blood Cell (RBC) Count 2.49 mill/uL (4.20-5.40); White Blood Cell (WBC) Count 15.5 thou/uL (4.8-10.8)
[2021-07-09 05:10] VITALS: BMI 49.7
[2021-07-09] MEDS: CEFAZOLIN 2 GM in Premix Bag 1 BAG IVPB SCH ×2 (05:12→14:20)
[2021-07-09] MEDS: Morphine 2 MG/ML VIAL SLOW IVP PRN (05:12)
[2021-07-09 05:21] LABS: Anion Gap 12 mmol/L (10-20); BUN (Urea Nitrogen) 13 mg/dL (7.0-18.7); Calc. Creatinine Clearance 85 mL/min (70-130); Calcium 8.7 mg/dL (7.8-10.44); Carbon Dioxide 28 mmol/L (22-29); Chloride 101 mmol/L (98-107); Glucose 125 mg/dL (70-105); Potassium 3.8 mmol/L (3.5-5.1); Sodium 137 mmol/L (136-145)
[2021-07-09] MEDS: Carvedilol 6.25 MG TAB PO SCH (16:11)
[2021-07-10] MEDS: CEFAZOLIN 2 GM in Premix Bag 1 BAG IVPB SCH ×2 (02:29→16:27)
[2021-07-10] MEDS: Carvedilol 6.25 MG TAB PO SCH ×2 (08:00→16:27)
[2021-07-10 12:27] LABS: Anion Gap 10 mmol/L (10-20); BUN (Urea Nitrogen) 13 mg/dL (7.0-18.7); Calc. Creatinine Clearance 93 mL/min (70-130); Calcium 8.7 mg/dL (7.8-10.44); Carbon Dioxide 29 mmol/L (22-29); Chloride 104 mmol/L (98-107); Glucose 198 mg/dL (70-105); Potassium 3.6 mmol/L (3.5-5.1); Sodium 139 mmol/L (136-145)
[2021-07-11] MEDS: CEFAZOLIN 2 GM in Premix Bag 1 BAG IVPB SCH ×3 (02:22→16:48)
[2021-07-11] MEDS: Carvedilol 6.25 MG TAB PO SCH ×2 (08:26→16:48)
[2021-07-11 11:07] LABS: Anion Gap 15 mmol/L (10-20); BUN (Urea Nitrogen) 14 mg/dL (7.0-18.7); Calc. Creatinine Clearance 0 mL/min (70-130); Calcium 8.7 mg/dL (7.8-10.44); Carbon Dioxide 25 mmol/L (22-29); Chloride 104 mmol/L (98-107); Glucose 181 mg/dL (70-105); Potassium 3.7 mmol/L (3.5-5.1); Sodium 140 mmol/L (136-145)
[2021-07-12] MEDS: CEFAZOLIN 2 GM in Premix Bag 1 BAG IVPB SCH ×2 (01:56→09:22)
[2021-07-12 04:50] LABS: Anion Gap 10 mmol/L (10-20); BUN (Urea Nitrogen) 14 mg/dL (7.0-18.7); Calc. Creatinine Clearance 0 mL/min (70-130); Calcium 7.3 mg/dL (7.8-10.44); Carbon Dioxide 24 mmol/L (22-29); Chloride 110 mmol/L (98-107); Glucose 181 mg/dL (70-105); Potassium 3.3 mmol/L (3.5-5.1); Sodium 141 mmol/L (136-145)
[2021-07-12] MEDS ORDERED: NPH, Human Insulin Isophane 300 UNIT/3 ML VIAL SC SCH (09:00)
[2021-07-12] MEDS: Potassium Chloride 20 MEQ TAB PO SCH ×2 (09:22→13:22)
[2021-07-12] MEDS: Carvedilol 6.25 MG TAB PO SCH (09:23)
[2021-07-12 12:10] VITALS: BP 106/70; TEMP 98.5
== END 2021-07-12 14:06 | disposition home health service (06) | DRG 270 ==
LOC: ERS 21:33 → ERHOLD 22:49 → IMCU/EMU 06-22 00:41 → 2NO 06-24 18:06 → CCU 07-04 13:52 → 2NO 07-07 18:08
PROVIDERS: ADMIT Internal Medicine; ATTEND Internal Medicine
PROC: 0W9B3ZZ Drainage of Left Pleural Cavity, Percutaneous Approach (ICD-10-PCS; 2021-06-22)
PROC: 02HV33Z Insertion of Infusion Device into Superior Vena Cava, Percutaneous Approach (ICD-10-PCS; 2021-06-27)
PROC: B548ZZA Ultrasonography of Superior Vena Cava, Guidance (ICD-10-PCS; 2021-06-27)
PROC: 0W9B3ZZ Drainage of Left Pleural Cavity, Percutaneous Approach (ICD-10-PCS; 2021-06-27)
PROC: 0W9D0ZZ Drainage of Pericardial Cavity, Open Approach (ICD-10-PCS; principal; 2021-07-04)
PROC: 3E033XZ Introduction of Vasopressor into Peripheral Vein, Percutaneous Approach (ICD-10-PCS; 2021-07-04)
PROC: 0W9B00Z Drainage of Left Pleural Cavity with Drainage Device, Open Approach (ICD-10-PCS; 2021-07-04)
PROC: 02CN0ZZ Extirpation of Matter from Pericardium, Open Approach (ICD-10-PCS; 2021-07-04)
DX: I13.0 Hypertensive heart and chronic kidney disease with heart failure and stage 1 through stage 4 chronic kidney disease, or unspecified chronic kidney disease (principal); I50.43 Acute on chronic combined systolic (congestive) and diastolic (congestive) heart failure; J96.01 Acute respiratory failure with hypoxia; A41.01 Sepsis due to Methicillin susceptible Staphylococcus aureus; J86.9 Pyothorax without fistula; I46.8 Cardiac arrest due to other underlying condition; N17.9 Acute kidney failure, unspecified; Z68.43 Body mass index [BMI] 50.0-59.9, adult; E87.1 Hypo-osmolality and hyponatremia; I47.2 Ventricular tachycardia; I31.3 Pericardial effusion (noninflammatory); I42.8 Other cardiomyopathies; Z20.822 Contact with and (suspected) exposure to COVID-19; N18.30 Chronic kidney disease, stage 3 unspecified; I25.10 Atherosclerotic heart disease of native coronary artery without angina pectoris; E66.01 Morbid (severe) obesity due to excess calories; E11.22 Type 2 diabetes mellitus with diabetic chronic kidney disease; I25.2 Old myocardial infarction; Z95.810 Presence of automatic (implantable) cardiac defibrillator; Z88.0 Allergy status to penicillin; Z91.040 Latex allergy status; Z86.74 Personal history of sudden cardiac arrest; Z79.4 Long term (current) use of insulin; Z79.899 Other long term (current) drug therapy; E87.5 Hyperkalemia; E11.65 Type 2 diabetes mellitus with hyperglycemia; D72.829 Elevated white blood cell count, unspecified; D63.1 Anemia in chronic kidney disease; D50.9 Iron deficiency anemia, unspecified; I25.5 Ischemic cardiomyopathy; E83.42 Hypomagnesemia; B95.61 Methicillin susceptible Staphylococcus aureus infection as the cause of diseases classified elsewhere; I95.9 Hypotension, unspecified; R00.1 Bradycardia, unspecified; Z78.1 Physical restraint status
CPT/HCPCS: 36415; 36416; 36569; 36600; 71045; 71046; 71250; 74177; 80048; 80076; 80202; 81001; 82150; 82247; 82805; 82945; 83615; 83735; 83880; 83986; 84100; 84157; 85025; 85060; 86850; 86900; 86901; 87070; 87077; 87086; 87186; 87205; 88112; 88305; 89051; 90471; 90732; 93306; 94002; 94003; 94660; 96365; 96366; C1751; G0009; J0171; J0690; J0692; J0696; J1100; J1250; J1644; J1815; J1940; J1956; J2001; J2250; J2270; J2405; J2704; J3010; J3370; J3475; J3490; J7030; J7050; J7070; S0020; S0028; U0003; U0005

== ENCOUNTER 2021-07-30 13:10 | Outpatient (CLI) | payer MEDICARE | END 2021-07-30 13:11 | disposition home or self-care (01) | LOC: BICRAD 13:10 | PROVIDERS: ATTEND Thoracic Surgery (Cardiothoracic Vascular Surgery) | DX: J86.9 Pyothorax without fistula (principal); I31.3 Pericardial effusion (noninflammatory); R91.8 Other nonspecific abnormal finding of lung field | CPT/HCPCS: 71046 ==

== ENCOUNTER 2022-05-08 20:55 | Inpatient (IN) | payer OTHER, MEDICAID ==
[2022-05-08 23:27] VITALS: BMI 45.7
[2022-05-09] MEDS ORDERED: Ondansetron ODT 4 MG TAB PO PRN (00:23)
[2022-05-09] MEDS ORDERED: Ondansetron PF 4 MG/2 ML Vial IVP PRN (00:23)
[2022-05-09] MEDS ORDERED: Guaifenesin DM 100-10/5 ML UDCUP PO PRN (00:23)
[2022-05-09] MEDS ORDERED: Nitroglycerin 0.4 MG TAB (25 Tab Bottle) SL PRN (00:23)
[2022-05-09] MEDS ORDERED: Acetaminophen 325 MG TAB PO PRN (00:23)
[2022-05-09] MEDS ORDERED: Acetaminophen 650 MG Suppository PR PRN (00:23)
[2022-05-09 02:25] LABS: Troponin I 0.035 ng/mL (< 0.028)
[2022-05-09] MEDS ORDERED: Dextrose 5% in Water 1,000 ML IV PRN (02:47)
[2022-05-09] MEDS ORDERED: HumaLOG 300 UNITS/3 ML VIAL SC PRN ×2 (02:47)
[2022-05-09] MEDS ORDERED: Dextrose 50% Abboject 50 ML SYRINGE SLOW IVP PRN (02:47)
[2022-05-09 05:08] LABS: Anion Gap 13 mmol/L (10-20); BUN (Urea Nitrogen) 20 mg/dL (7.0-18.7); Calc. Creatinine Clearance 113 mL/min (70-130); Calcium 9.1 mg/dL (7.8-10.44); Carbon Dioxide 29 mmol/L (22-29); Chloride 100 mmol/L (98-107); Estimated GFR 52; Glucose 124 mg/dL (70-105); Sodium 139 mmol/L (136-145); Troponin I 0.029 ng/mL (< 0.028)
[2022-05-09] MEDS ORDERED: Potassium Chloride 20 MEQ TAB PO SCH (07:45)
[2022-05-09] MEDS ORDERED: Magnesium Oxide 400 MG TAB PO PRN (08:45)
[2022-05-09] MEDS ORDERED: Non-Formulary Item 1 EACH (Albuterol Sulfate Hfa (Or) 200 PUFF Inh) INH PRN (08:45)
[2022-05-09] MEDS ORDERED: Albuterol Sulfate 2.5 mg/3 ml Neb NEB PRN (08:52)
[2022-05-09] MEDS ORDERED: Famotidine 20 MG TAB PO SCH (09:00)
[2022-05-09] MEDS ORDERED: Torsemide 20 MG TAB PO SCH (09:00)
[2022-05-09] MEDS: Aspirin Chewable 81 MG TAB PO SCH (10:34)
[2022-05-09] MEDS: Potassium Chloride 20 MEQ TAB PO SCH (10:34)
[2022-05-09] MEDS: Empagliflozin 10 MG TAB PO SCH (10:34)
[2022-05-09] MEDS: Heparin 5,000 UNITS/ML VIAL SC SCH ×2 (10:38→20:41)
[2022-05-09] MEDS: Furosemide 40 MG/4 ML VIAL SLOW IVP SCH ×2 (11:25→20:38)
[2022-05-09] MEDS: Carvedilol 6.25 MG TAB PO SCH (17:41)
[2022-05-10 04:33] LABS: #Eosinphils 0.1 thou/uL (0.0-0.7); #Lymphocytes 2.6 thou/uL (1.20-3.40); #Neutrophils 3.7 thou/uL (1.40-6.50); %Basophils 0.6 % (0.0-1.0); %Eosinophils 1.9 % (0.0-10.0); %Lymphocytes 34.3 % (21.0-51.0); %Neutrophils 50.1 % (42.0-75.0); Hemoglobin 11.8 g/dL (12.0-16.0); Mean Corpuscular HGB CONC 31.8 g/dL (32.0-36.0); Mean Corpuscular Hemoglobin 25.7 pg (27.0-31.0); Mean Corpuscular Volume 80.8 fL (78.0-98.0); Platelet Count 259 thou/uL (130-400); RBC Distribution Width 18.1 % (11.5-14.5); Red Blood Cell (RBC) Count 4.61 mill/uL (4.20-5.40); White Blood Cell (WBC) Count 7.4 thou/uL (4.8-10.8)
[2022-05-10 04:54] LABS: Anion Gap 12 mmol/L (10-20); BUN (Urea Nitrogen) 21 mg/dL (7.0-18.7); Calc. Creatinine Clearance 127 mL/min (70-130); Calcium 9.4 mg/dL (7.8-10.44); Carbon Dioxide 31 mmol/L (22-29); Chloride 99 mmol/L (98-107); Estimated GFR 60; Glucose 110 mg/dL (70-105); Sodium 139 mmol/L (136-145)
[2022-05-10] MEDS ORDERED: HumaLOG 300 UNITS/3 ML VIAL SC SCH ×2 (07:30)
[2022-05-10] MEDS ORDERED: Potassium Chloride 20 MEQ TAB PO SCH (07:45)
[2022-05-10] MEDS: Potassium Chloride 20 MEQ TAB PO SCH (08:53)
[2022-05-10] MEDS: Carvedilol 6.25 MG TAB PO SCH (08:54)
[2022-05-10] MEDS: Empagliflozin 10 MG TAB PO SCH (08:54)
[2022-05-10] MEDS: Aspirin Chewable 81 MG TAB PO SCH (08:54)
[2022-05-10] MEDS: Torsemide 20 MG TAB PO SCH ×2 (08:54→13:47)
[2022-05-10] MEDS: Heparin 5,000 UNITS/ML VIAL SC SCH (09:02)
[2022-05-10 10:58] VITALS: BP 102/60
[2022-05-10 11:13] VITALS: TEMP 97.7
[2022-05-11] MEDS ORDERED: Spironolactone 25 MG TAB PO SCH (08:00)
== END 2022-05-10 15:26 | disposition home or self-care (01) | DRG 280 ==
LOC: 2NO 20:55 → OBSVTOIN 05-09 08:49
PROVIDERS: ADMIT Family Medicine; ATTEND Family Medicine
DX: I13.0 Hypertensive heart and chronic kidney disease with heart failure and stage 1 through stage 4 chronic kidney disease, or unspecified chronic kidney disease (principal); I50.43 Acute on chronic combined systolic (congestive) and diastolic (congestive) heart failure; I21.A1 Myocardial infarction type 2; N17.9 Acute kidney failure, unspecified; N39.0 Urinary tract infection, site not specified; Z68.42 Body mass index [BMI] 45.0-49.9, adult; Z20.822 Contact with and (suspected) exposure to COVID-19; I42.8 Other cardiomyopathies; E11.22 Type 2 diabetes mellitus with diabetic chronic kidney disease; N18.30 Chronic kidney disease, stage 3 unspecified; E11.65 Type 2 diabetes mellitus with hyperglycemia; E66.01 Morbid (severe) obesity due to excess calories; I25.2 Old myocardial infarction; Z88.0 Allergy status to penicillin; Z91.040 Latex allergy status; Z79.51 Long term (current) use of inhaled steroids; Z79.4 Long term (current) use of insulin; Z79.899 Other long term (current) drug therapy; Z95.810 Presence of automatic (implantable) cardiac defibrillator
CPT/HCPCS: 36415; 36416; 76700; 80048; 83735; 83880; 84484; 85025; 93306; 94760; G0378; J1644; J1940; U0003; U0005